=== PATIENT | female | born 1970 | race Caucasian/White ===

== ENCOUNTER 2018-05-22 01:20 | Inpatient (IN) | payer MEDICARE ==
[~2018-05-22] VITALS: Ht 157.5 cm; Wt 81.9 kg
[~2018-05-22 01:20] MED LIST: CLON1TAB4 PO; CODE1CAP9 PO; ESZO2TAB22 PO; GABA-827 PO; HYDR-3237 PO; IBUP-1484 PO; QUET200T4 PO; RIZA5TAB2 PO; ROPI1TAB PO
[2018-05-22 01:57] LABS: MEAN CORPUSCULAR HEMOGLOBIN 22.6 pg (27.0-34.8); MEAN CORPUSCULAR HGB CONC 31.7 g/dL (32.4-35.8); MEAN CORPUSCULAR VOLUME 71.1 fL (80-100); MEAN PLATELET VOLUME 7.6 fL (7.4-10.4); PLATELET COUNT 421 x10^3/uL (130-400); RED BLOOD COUNT 5.07 x10^6/uL (3.82-5.3); RED CELL DISTRIBUTION WIDTH 18.9 % (9.6-15.2)
[2018-05-22 02:10] LABS: ALBUMIN 3.3 g/dL (3.4-5.0); ANION GAP 8 mmol/L (5-15); CALCIUM 8.3 mg/dL (8.5-10.1); CHLORIDE 107 mmol/L (98-107); CREATININE 0.72 mg/dL (0.55-1.02)
[2018-05-22 02:13] LABS: TROPONIN I < 0.015 ng/mL (0.000-0.045)
[2018-05-22 02:33] LABS: BASOPHILS # (AUTO) 0.03 x10^3/uL (0-0.1); BASOPHILS % (AUTO) 0 % (0-1); EOSINOPHILS # (AUTO) 0.15 x10^3/uL (0-0.4); EOSINOPHILS % (AUTO) 1 % (1-7); LYMPHOCYTES # (AUTO) 1.87 x10^3/uL (1-3.4); LYMPHOCYTES % (AUTO) 10 % (22-44); MD SCAN; MONOCYTES # (AUTO) 0.85 x10^3/uL (0.2-0.8); MONOCYTES % (AUTO) 5 % (2-9); NEUTROPHILS % (AUTO) 84 % (42-75)
[2018-05-22] MEDS ORDERED: CEFTRIAXONE PMX 1GM/50ML 50 ML ONE (03:06)
[2018-05-22] MEDS ORDERED: AZITHROMYCIN 500 MG in SODIUM CHLORIDE 0.9% 250 ML IV ONE (03:30)
[2018-05-22] MEDS ORDERED: CEFTRIAXONE 1,000 MG in SODIUM CHLORIDE 0.9% 50 ML IVPB ONE (03:30)
[2018-05-22] MEDS ORDERED: [UNRECOGNIZED DRUG - OTHER] (03:47)
[2018-05-22] MEDS ORDERED: ONDANSETRON 2MG/ML, 2ML ONE (04:17)
[2018-05-22] MEDS ORDERED: SODIUM CHLORIDE 0.9% 1,000 ML IV ONE (04:23)
[2018-05-22] MEDS ORDERED: HEPARIN 5,000 UNITS/ML, 1ML ONE (04:29)
[2018-05-22] MEDS ORDERED: HEPARIN 25,000 UNITS/500ML PMX 500 ML ONE (04:30)
[2018-05-22] MEDS ORDERED: ONDANSETRON 2MG/ML, 2ML IVPush ONE (04:30)
[2018-05-22] MEDS ORDERED: MORPHINE SULFATE 4 MG/ML, 1ML IVPush PRN (04:30)
[2018-05-22] MEDS ORDERED: HEPARIN 5,000 UNITS/ML, 1ML IV PRN (04:30)
[2018-05-22] MEDS ORDERED: HEPARIN 5,000 UNITS/ML, 1ML IV ONE (04:30)
[2018-05-22] MEDS ORDERED: HEPARIN 25,000 UNITS/500ML PMX 500 ML IV PRN (04:30)
[2018-05-22] MEDS ORDERED: SODIUM CHLORIDE 0.9% 1,000 ML IV SCH (04:56)
[2018-05-22] MEDS ORDERED: POLYETHYLENE GLYCOL 17 GM PACKET PO PRN (05:00)
[2018-05-22] MEDS ORDERED: ACETAMINOPHEN 325 MG TABLET PO PRN (05:00)
[2018-05-22] MEDS ORDERED: ONDANSETRON 2MG/ML, 2ML IVPush PRN (05:00)
[2018-05-22] MEDS ORDERED: GUAIFENESIN/DM 200-20MG, 10ML UDC PO PRN (05:00)
[2018-05-22] MEDS ORDERED: morphine SULFATE 10 MG/ML, 1ML IVPush PRN (05:00)
[2018-05-22] MEDS: AZITHROMYCIN 500 MG in SODIUM CHLORIDE 0.9% 250 ML IV SCH (05:00)
[2018-05-22] MEDS ORDERED: hydrALAzine 20 MG/ML, 1ML IVPush PRN (05:00)
[2018-05-22] MEDS ORDERED: TRAZODONE 50MG TABLET PO PRN (05:00)
[2018-05-22] MEDS: CEFTRIAXONE 1,000 MG in SODIUM CHLORIDE 0.9% 50 ML IV SCH (05:00)
[2018-05-22] MEDS ORDERED: ONDANSETRON ODT 4 MG PO PRN (05:00)
[2018-05-22 05:24] VITALS: BP 106/74
[2018-05-22] MEDS: HYDROcodone/APAP 5/325 TABLET PO PRN ×3 (05:38→21:37)
[2018-05-22] MEDS ORDERED: DOCU-180 PO (05:40)
[2018-05-22] MEDS ORDERED: ALBUTEROL SULFATE 2.5 MG/3 ML NPPB PRN (06:00)
[2018-05-22] MEDS: BUTALB/APAP/CAFFEINE 50MG/325MG/40MG PO PRN ×3 (06:04→21:37)
[2018-05-22] MEDS: GABAPENTIN 400 MG CAPSULE PO SCH ×4 (06:04→21:37)
[2018-05-22 07:45] VITALS: BP 91/64
[2018-05-22] MEDS ORDERED: RIVAROXABAN 15 MG TABLET PO SCH (08:00)
[2018-05-22] MEDS: RIVAROXABAN 15 MG TABLET PO SCH ×3 (08:00→17:13)
[2018-05-22] MEDS: QUETIAPINE 200 MG TABLET PO SCH (08:38)
[2018-05-22] MEDS ORDERED: NICOTINE 21 MG/24 HR PATCH.TD24 TD SCH (13:00)
[2018-05-22 13:11] VITALS: BP 92/63
[2018-05-22] MEDS ORDERED: KETOROLAC 30 MG/1 ML ONE (15:51)
[2018-05-22] MEDS ORDERED: KETOROLAC 30 MG/1 ML IVPush SCH (16:00)
[2018-05-22] MEDS ORDERED: KETOROLAC 30 MG/1 ML IVPush ONE (16:00)
[2018-05-22 22:25] VITALS: BP 105/66
[2018-05-23 00:17] VITALS: BP 88/60
[2018-05-23 00:54] VITALS: BP 95/64
[2018-05-23] MEDS ORDERED: SODIUM CHLORIDE 0.9% 1,000 ML IV SCH (04:56)
[2018-05-23] MEDS: GABAPENTIN 400 MG CAPSULE PO SCH ×2 (04:58→12:11)
[2018-05-23] MEDS: CEFTRIAXONE 1,000 MG in SODIUM CHLORIDE 0.9% 50 ML IV SCH (04:59)
[2018-05-23] MEDS: BUTALB/APAP/CAFFEINE 50MG/325MG/40MG PO PRN (04:59)
[2018-05-23] MEDS: AZITHROMYCIN 500 MG in SODIUM CHLORIDE 0.9% 250 ML IV SCH (05:00)
[2018-05-23 05:11] LABS: BASOPHILS # (AUTO) 0.14 x10^3/uL (0-0.1); BASOPHILS % (AUTO) 1 % (0-1); EOSINOPHILS # (AUTO) 0.39 x10^3/uL (0-0.4); EOSINOPHILS % (AUTO) 4 % (1-7); LYMPHOCYTES # (AUTO) 2.39 x10^3/uL (1-3.4); LYMPHOCYTES % (AUTO) 23 % (22-44); MD NO; MEAN CORPUSCULAR HEMOGLOBIN 22.1 pg (27.0-34.8); MEAN CORPUSCULAR HGB CONC 30.9 g/dL (32.4-35.8); MEAN CORPUSCULAR VOLUME 71.3 fL (80-100); MEAN PLATELET VOLUME 7.6 fL (7.4-10.4); MONOCYTES % (AUTO) 6 % (2-9); NEUTROPHILS # (AUTO) 6.76 x10^3/uL (1.8-6.8); NEUTROPHILS % (AUTO) 66 % (42-75); PLATELET COUNT 399 x10^3/uL (130-400); RED BLOOD COUNT 4.29 x10^6/uL (3.82-5.3); RED CELL DISTRIBUTION WIDTH 19.2 % (9.6-15.2)
[2018-05-23 05:16] LABS: ALANINE AMINOTRANSFERASE 13 U/L (12-78); ALBUMIN 2.5 g/dL (3.4-5.0); ANION GAP 3 mmol/L (5-15); CALCIUM 7.2 mg/dL (8.5-10.1); CHLORIDE 116 mmol/L (98-107); CREATININE 0.48 mg/dL (0.55-1.02)
[2018-05-23 05:18] LABS: ALKALINE PHOSPHATASE 64 U/L (45-117); BILIRUBIN,TOTAL 0.3 mg/dL (0.2-1.0)
[2018-05-23] MEDS: HYDROcodone/APAP 5/325 TABLET PO PRN (05:36)
[2018-05-23 06:44] VITALS: BP 88/61
[2018-05-23] MEDS: RIVAROXABAN 15 MG TABLET PO SCH (08:01)
[2018-05-23] MEDS: QUETIAPINE 200 MG TABLET PO SCH (08:01)
[2018-05-23] MEDS ORDERED: RIVA20TA PO (09:33)
[2018-05-23] MEDS ORDERED: DOXY100T PO (09:33)
[2018-05-23] MEDS ORDERED: RIVA1TAB PO (09:33)
== END 2018-05-23 12:27 | disposition home or self-care (01) | DRG 175 ==
LOC: ED 03:27 → EDIP 04:23 → 4WST 05:25
PROVIDERS: ADMIT Hospitalist; ATTEND Hospitalist
DX: I26.99 Other pulmonary embolism without acute cor pulmonale (principal); J18.1 Lobar pneumonia, unspecified organism; D50.9 Iron deficiency anemia, unspecified; F17.210 Nicotine dependence, cigarettes, uncomplicated; R79.1 Abnormal coagulation profile; R07.89 Other chest pain; G43.909 Migraine, unspecified, not intractable, without status migrainosus; G89.29 Other chronic pain; F41.9 Anxiety disorder, unspecified; R79.89 Other specified abnormal findings of blood chemistry; Z98.84 Bariatric surgery status; Z79.899 Other long term (current) drug therapy
CPT/HCPCS: 36415; 71045; 71275; 80048; 80053; 82040; 83735; 84100; 84145; 84484; 85025; 85379; 85520; 87040; 93005; 93306; 93970; 96374; 96375; 99285; J0456; J0696; J1644; J1885; J7030; J7050

== ENCOUNTER 2018-09-27 10:13 | Inpatient (IN) | payer MEDICARE ==
[~2018-09-27] VITALS: Ht 154.9 cm; Wt 71.0 kg
[~2018-09-27 10:13] MED LIST changes: +CLON1TAB11 PO; -CLON1TAB4 PO; +DOCU-180 PO; +DOXY100T PO; +RIVA1TAB PO; +RIVA20TA PO; +[UNRECOGNIZED DRUG - OTHER]
[2018-09-27 11:14] LABS: ALANINE AMINOTRANSFERASE 19 U/L (12-78); ALBUMIN 4.4 g/dL (3.4-5.0); ANION GAP 7 mmol/L (5-15); CALCIUM 8.7 mg/dL (8.5-10.1); CHLORIDE 111 mmol/L (98-107); CREATININE 0.81 mg/dL (0.55-1.02)
[2018-09-27 11:16] LABS: ALKALINE PHOSPHATASE 70 U/L (45-117); BILIRUBIN,TOTAL 0.4 mg/dL (0.2-1.0); TOTAL PROTEIN 8.3 g/dL (6.4-8.2)
[2018-09-27 11:40] LABS: MEAN CORPUSCULAR HEMOGLOBIN 19.8 pg (27.0-34.8); MEAN CORPUSCULAR HGB CONC 30.2 g/dL (32.4-35.8); MEAN CORPUSCULAR VOLUME 65.5 fL (80-100); MEAN PLATELET VOLUME 8.3 fL (7.4-10.4); PLATELET COUNT 605 x10^3/uL (130-400); RED BLOOD COUNT 4.99 x10^6/uL (3.82-5.3)
[2018-09-27 11:42] LABS: BASOPHILS # (AUTO) 0.08 x10^3/uL (0-0.1); BASOPHILS % (AUTO) 1 % (0-1); EOSINOPHILS # (AUTO) 0.34 x10^3/uL (0-0.4); EOSINOPHILS % (AUTO) 3 % (1-7); LYMPHOCYTES # (AUTO) 2.52 x10^3/uL (1-3.4); LYMPHOCYTES % (AUTO) 20 % (22-44); MD MORPH REVIEW ONLY; MONOCYTES # (AUTO) 0.42 x10^3/uL (0.2-0.8); MONOCYTES % (AUTO) 3 % (2-9); NEUTROPHILS # (AUTO) 8.98 x10^3/uL (1.8-6.8); NEUTROPHILS % (AUTO) 73 % (42-75)
[2018-09-27 11:44] LABS: INTERNATIONAL NORMALIZED RATIO 0.94 (0.93-1.1)
[2018-09-27] MEDS ORDERED: LIDOCAINE/PF 1%, 30ML ONE (11:44)
[2018-09-27 11:45] LABS: <PLATELET ESTIMATE> INCREASED; <PLT MORPHOLOGY> NORMAL PLT MORPH; ANISOCYTOSIS 1+; MICROCYTOSIS 2+
[2018-09-27 11:46] LABS: HYPOCHROMIA 2+
[2018-09-27] MEDS ORDERED: SODIUM CHLORIDE 0.9% 1,000 ML IV SCH (12:35)
[2018-09-27] MEDS ORDERED: HYDROcodone/APAP 5/325 TABLET PO PRN (13:00)
[2018-09-27] MEDS ORDERED: ONDANSETRON ODT 4 MG PO PRN (13:00)
[2018-09-27] MEDS ORDERED: GABAPENTIN 300 MG CAPSULE PO PRN (13:00)
[2018-09-27] MEDS ORDERED: hydrALAzine 20 MG/ML, 1ML IVPush PRN (13:00)
[2018-09-27] MEDS ORDERED: DOCUSATE 100 MG CAPSULE PO PRN (13:00)
[2018-09-27] MEDS ORDERED: ONDANSETRON 2MG/ML, 2ML IVPush PRN (13:00)
[2018-09-27] MEDS ORDERED: morphine SULFATE 10 MG/ML, 1ML IVPush PRN (13:00)
[2018-09-27] MEDS ORDERED: LABETALOL 5MG/ML, 20ML IVPush PRN (13:00)
[2018-09-27] MEDS ORDERED: PROMETHAZINE 25 MG/ML, 1ML IM PRN (13:00)
[2018-09-27] MEDS ORDERED: POLYETHYLENE GLYCOL 17 GM PACKET PO PRN (13:00)
[2018-09-27] MEDS ORDERED: BISACODYL 10 MG SUPP PR PRN (13:00)
[2018-09-27] MEDS ORDERED: ACETAMINOPHEN 325 MG TABLET PO PRN (13:00)
[2018-09-27 13:37] LABS: FREE T4 (FREE THYROXINE) 0.74 ng/dL (0.76-1.46); THYROID STIMULATING HORMONE 3.24 mIU/L (0.358-3.740)
[2018-09-27 14:00] VITALS: BP 124/81
[2018-09-27] MEDS: QUETIAPINE 200 MG TABLET PO SCH (14:03)
[2018-09-27] MEDS: GABAPENTIN 400 MG CAPSULE PO SCH ×3 (14:04→20:05)
[2018-09-27] MEDS: NICOTINE 14MG/24 HR PATCH.TD24 TD SCH (14:22)
[2018-09-27] MEDS: BUTALBIT/ACETAMIN/CAFF/CODEINE CAPSULE PO PRN (14:23)
[2018-09-27] MEDS ORDERED: ALBUTEROL SULFATE 2.5 MG/3 ML NPPB PRN (16:30)
[2018-09-27] MEDS ORDERED: METH750T87 PO ×2 (18:30→18:34)
[2018-09-27] MEDS ORDERED: PRAM0.37 PO (18:30)
[2018-09-27] MEDS ORDERED: QUET300T5 PO (18:34)
[2018-09-27 20:01] VITALS: BP 94/63
[2018-09-27] MEDS: OXYcodone IR 5MG TABLET PO PRN (20:05)
[2018-09-27] MEDS ORDERED: PRAMIPEXOLE DI HCL 0.375 MG HOMEMEDPO SCH (22:00)
[2018-09-27] MEDS ORDERED: METHOCARBAMOL 750 MG TABLET PO PRN (22:00)
[2018-09-27] MEDS ORDERED: QUETIAPINE 100MG TABLET PO SCH (22:00)
[2018-09-28 01:15] VITALS: BP 90/60
[2018-09-28] MEDS: OXYcodone IR 5MG TABLET PO PRN ×3 (03:29→12:35)
[2018-09-28] MEDS: GABAPENTIN 400 MG CAPSULE PO SCH ×3 (05:10→16:00)
[2018-09-28 06:20] LABS: ALANINE AMINOTRANSFERASE 13 U/L (12-78); ALBUMIN 3.1 g/dL (3.4-5.0); ANION GAP 8 mmol/L (5-15); CALCIUM 7.6 mg/dL (8.5-10.1); CHLORIDE 111 mmol/L (98-107); CREATININE 0.73 mg/dL (0.55-1.02); MEAN CORPUSCULAR HEMOGLOBIN 19.5 pg (27.0-34.8); MEAN CORPUSCULAR VOLUME 66.2 fL (80-100); MEAN PLATELET VOLUME 8.1 fL (7.4-10.4); PLATELET COUNT 496 x10^3/uL (130-400); RED BLOOD COUNT 4.09 x10^6/uL (3.82-5.3); RED CELL DISTRIBUTION WIDTH 19.7 % (9.6-15.2)
[2018-09-28 06:23] LABS: ALKALINE PHOSPHATASE 51 U/L (45-117); BILIRUBIN,TOTAL 0.2 mg/dL (0.2-1.0)
[2018-09-28 06:27] LABS: MEAN CORPUSCULAR HGB CONC 29.5 g/dL (32.4-35.8)
[2018-09-28 06:43] VITALS: BP 95/64
[2018-09-28 06:43] LABS: BASOPHILS # (AUTO) 0.05 x10^3/uL (0-0.1); BASOPHILS % (AUTO) 1 % (0-1); EOSINOPHILS # (AUTO) 0.46 x10^3/uL (0-0.4); EOSINOPHILS % (AUTO) 5 % (1-7); LYMPHOCYTES # (AUTO) 2.93 x10^3/uL (1-3.4); LYMPHOCYTES % (AUTO) 32 % (22-44); MD SCAN; MONOCYTES # (AUTO) 0.54 x10^3/uL (0.2-0.8); MONOCYTES % (AUTO) 6 % (2-9); NEUTROPHILS # (AUTO) 5.34 x10^3/uL (1.8-6.8); NEUTROPHILS % (AUTO) 57 % (42-75)
[2018-09-28] MEDS: QUETIAPINE 200 MG TABLET PO SCH (08:58)
[2018-09-28] MEDS ORDERED: RIVAROXABAN 20 MG TABLET PO SCH (09:00)
[2018-09-28] MEDS ORDERED: ALBU18HF INH (12:06)
[2018-09-28] MEDS: BUTALBIT/ACETAMIN/CAFF/CODEINE CAPSULE PO PRN (12:24)
[2018-09-28] MEDS: NICOTINE 14MG/24 HR PATCH.TD24 TD SCH (12:24)
[2018-09-28 12:50] VITALS: BP 93/65
== END 2018-09-28 17:22 | disposition home or self-care (01) | DRG 200 ==
LOC: ED 12:47 → EDIP 12:48 → 3NE 13:37
PROVIDERS: ADMIT Internal Medicine; ATTEND Internal Medicine
PROC: 0W9B30Z Drainage of Left Pleural Cavity with Drainage Device, Percutaneous Approach (ICD-10-PCS; principal; 2018-09-27)
DX: J93.83 Other pneumothorax (principal); K50.90 Crohn's disease, unspecified, without complications; D68.69 Other thrombophilia; Z79.01 Long term (current) use of anticoagulants; Z86.711 Personal history of pulmonary embolism; F17.210 Nicotine dependence, cigarettes, uncomplicated; D53.9 Nutritional anemia, unspecified; F41.9 Anxiety disorder, unspecified; F51.04 Psychophysiologic insomnia; G89.4 Chronic pain syndrome; Z98.84 Bariatric surgery status; Z79.899 Other long term (current) drug therapy; Z88.0 Allergy status to penicillin; Z88.8 Allergy status to other drugs, medicaments and biological substances
CPT/HCPCS: 32557; 36415; 71045; 80053; 83036; 83690; 83735; 84439; 84443; 85025; 85610; 85730; 93005; 93306; 99285; G0378; J3490; C1729; C1769; J2270; J7030

== ENCOUNTER 2018-11-16 15:04 | Emergency (ER) | payer MEDICARE ==
[~2018-11-16] VITALS: Ht 157.5 cm; Wt 66.6 kg
[~2018-11-16 15:04] MED LIST changes: +ALBU18HF INH; +METH750T87 PO; +PRAM0.37 PO; +QUET300T5 PO
[2018-11-16 15:09] VITALS: BP 123/85
[2018-11-16] MEDS ORDERED: LIDOCAINE-MPF 1%, 5ML ONE (15:27)
[2018-11-16] MEDS ORDERED: CEFAZOLIN 1,000 MG IM ONE (15:30)
[2018-11-16] MEDS ORDERED: HYDROcodone/APAP 5/325 TABLET PO ONE (15:30)
[2018-11-16] MEDS ORDERED: LIDOCAINE 2%, 20ML SQ ONE (15:30)
[2018-11-16] MEDS ORDERED: CEFAZOLIN 1,000 MG ONE (15:36)
[2018-11-16] MEDS ORDERED: HYDROcodone/APAP 5/325 TABLET ONE (15:36)
[2018-11-16] MEDS ORDERED: BACITRACIN ZINC OINT 500U/GM, 0.9 GM ONE ×2 (16:27→16:51)
--- NOTE | 2018-11-16 16:49 | NUR ---
SHERLY BARNES AT BEDSIDE PERFORMING SUTURES.
== END 2018-11-16 17:34 | disposition home or self-care (01) ==
LOC: ED 15:47
DX: S62.661B Nondisplaced fracture of distal phalanx of left index finger, initial encounter for open fracture (principal); F17.200 Nicotine dependence, unspecified, uncomplicated; W31.2XXA Contact with powered woodworking and forming machines, initial encounter; Y93.89 Activity, other specified; Y92.009 Unspecified place in unspecified non-institutional (private) residence as the place of occurrence of the external cause; Y99.8 Other external cause status
CPT/HCPCS: 29130; 73130; 99284; J0690

== ENCOUNTER → 2018-12-17 | Outpatient (CLI) | payer MEDICARE | END | disposition home or self-care (01) | LOC: WOUND 14:01 | PROVIDERS: ATTEND Family Medicine | DX: T81.31XA Disruption of external operation (surgical) wound, not elsewhere classified, initial encounter (principal); K58.2 Mixed irritable bowel syndrome; J45.20 Mild intermittent asthma, uncomplicated; F17.200 Nicotine dependence, unspecified, uncomplicated; G43.709 Chronic migraine without aura, not intractable, without status migrainosus; Z86.711 Personal history of pulmonary embolism; Y92.89 Other specified places as the place of occurrence of the external cause; Y83.8 Other surgical procedures as the cause of abnormal reaction of the patient, or of later complication, without mention of misadventure at the time of the procedure | CPT/HCPCS: 97597; G0463 ==

== ENCOUNTER → 2018-12-24 | Outpatient (CLI) | payer MEDICARE | END | disposition home or self-care (01) | LOC: WOUND 14:38 | PROVIDERS: ATTEND Family Medicine | DX: T81.31XD Disruption of external operation (surgical) wound, not elsewhere classified, subsequent encounter (principal); J45.20 Mild intermittent asthma, uncomplicated; K58.2 Mixed irritable bowel syndrome; G43.709 Chronic migraine without aura, not intractable, without status migrainosus; F17.200 Nicotine dependence, unspecified, uncomplicated; Z86.711 Personal history of pulmonary embolism; Y83.8 Other surgical procedures as the cause of abnormal reaction of the patient, or of later complication, without mention of misadventure at the time of the procedure | CPT/HCPCS: 97597 ==

== ENCOUNTER → 2018-12-31 | Outpatient (CLI) | payer MEDICARE | END | disposition home or self-care (01) | LOC: WOUND 14:44 | PROVIDERS: ATTEND Family Medicine | DX: T81.31XD Disruption of external operation (surgical) wound, not elsewhere classified, subsequent encounter (principal); J45.20 Mild intermittent asthma, uncomplicated; K58.2 Mixed irritable bowel syndrome; G43.909 Migraine, unspecified, not intractable, without status migrainosus; F17.200 Nicotine dependence, unspecified, uncomplicated; Z86.711 Personal history of pulmonary embolism; Y83.8 Other surgical procedures as the cause of abnormal reaction of the patient, or of later complication, without mention of misadventure at the time of the procedure | CPT/HCPCS: 97597 ==

== ENCOUNTER → 2019-01-07 | Outpatient (CLI) | payer MEDICARE | END | disposition home or self-care (01) | LOC: WOUND 14:20 | PROVIDERS: ATTEND Family Medicine | DX: T81.31XD Disruption of external operation (surgical) wound, not elsewhere classified, subsequent encounter (principal); J45.20 Mild intermittent asthma, uncomplicated; K58.2 Mixed irritable bowel syndrome; G43.709 Chronic migraine without aura, not intractable, without status migrainosus; F17.200 Nicotine dependence, unspecified, uncomplicated; Z86.711 Personal history of pulmonary embolism; Y83.8 Other surgical procedures as the cause of abnormal reaction of the patient, or of later complication, without mention of misadventure at the time of the procedure | CPT/HCPCS: 97597 ==

== ENCOUNTER → 2019-01-21 | Outpatient (CLI) | payer MEDICARE | END | disposition home or self-care (01) | LOC: WOUND 10:37 | PROVIDERS: ATTEND Family Medicine | DX: T81.31XD Disruption of external operation (surgical) wound, not elsewhere classified, subsequent encounter (principal); J45.20 Mild intermittent asthma, uncomplicated; K58.2 Mixed irritable bowel syndrome; G43.709 Chronic migraine without aura, not intractable, without status migrainosus; F17.200 Nicotine dependence, unspecified, uncomplicated; Z86.711 Personal history of pulmonary embolism; Y83.8 Other surgical procedures as the cause of abnormal reaction of the patient, or of later complication, without mention of misadventure at the time of the procedure | CPT/HCPCS: G0463 ==

== ENCOUNTER 2019-06-16 19:13 | Inpatient (IN) | payer MEDICARE ==
[~2019-06-16] VITALS: Ht 157.5 cm; Wt 53.8 kg
[~2019-06-16 19:13] MED LIST changes: -IBUP-1484 PO; +IBUP-1902 PO
--- NOTE | 2019-06-16 19:40 | NUR ---
PT HERE TODAY FOR ABD PAIN AND DIARRHEA THAT STARTED EARLIER THIS WEEK. HAD INCONTINENT EPISODE OF DIARRHEA ONCE LAST NIGHT. PT RESTING ON GURNEY. STATES SHE HAS BEEN VERY TIRED. VSS. LAB AT BEDSIDE. MD WAS AT BEDSIDE TO ASSESS PT AND UPDATE PT ON POC.
--- NOTE | 2019-06-16 19:48 | NUR ---
LAB FINISHED AT BEDSIDE. PT REQUESTING TO HAVE TIME TO PROVIDE UA SHE JUST WENT. AWARE OF POC. WILL ATTEMPT TO START PIV.
[2019-06-16] MEDS ORDERED: ACETAMINOPHEN 500 MG TABLET ONE (19:52)
--- NOTE | 2019-06-16 19:54 | NUR ---
PT MEDICATED PER EMAR. STARTING PIV WHEN PT RETURNS FROM BATHROOM- STATES SHE NEEDS TO HAVE DIARRHEA. GIVEN URINE CUP TO ATTEMPT TO CATCH UA.
[2019-06-16] MEDS ORDERED: ACETAMINOPHEN 500 MG TABLET PO ONE (20:00)
[2019-06-16] MEDS ORDERED: SODIUM CHLORIDE FLUSH 10ML SYR IVF ONE (20:00)
[2019-06-16 20:06] LABS: ALANINE AMINOTRANSFERASE 14 U/L (12-78); ALBUMIN 2.6 g/dL (3.4-5.0); ANION GAP 9 mmol/L (5-15); CALCIUM 7.6 mg/dL (8.5-10.1); CHLORIDE 114 mmol/L (98-107); CREATININE 0.69 mg/dL (0.55-1.02)
[2019-06-16 20:08] LABS: ALKALINE PHOSPHATASE 79 U/L (45-117); BILIRUBIN,TOTAL 0.1 mg/dL (0.2-1.0); TOTAL PROTEIN 5.9 g/dL (6.4-8.2)
--- NOTE | 2019-06-16 20:09 | NUR ---
PIV STARTED. PT HYPOTENSIVE. WILL ALERT MD. PT RESTING ON ROBERTO. TAMAR.
--- NOTE | 2019-06-16 20:12 | NUR ---
PT STATES SHE WAS UNABLE TO PROVIDE URINE AND DID NOT HAVE DIARREA. PT STATES "YOU WILL NOT STRAIGHT CATH ME. IF I AM TO PROVIDE URINE I NEED TO DRINK WATER." WILL INFORM .
--- NOTE | 2019-06-16 20:22 | NUR ---
PT STATES SHE HAD A BM IN PT BATHROOM NOW THAT WAS SORT OF SOLID. PT PLACED ON ISO PRECAUTIONS FOR R/O C-DIFF AND BSC PLACED AT BEDSIDE TO COLLECT NEXT BM. PT NOW RESTING ON GURNEY. VSS. NADN. CONNECTED TO MONITOR.
[2019-06-16] MEDS ORDERED: SODIUM CHLORIDE 0.9% 1,000ML IVBOLUS ONE (20:30)
[2019-06-16 20:37] LABS: MEAN CORPUSCULAR HEMOGLOBIN 19.1 pg (27.0-34.8); MEAN CORPUSCULAR VOLUME 64.2 fL (80-100); MEAN PLATELET VOLUME 7.3 fL (7.4-10.4); PLATELET COUNT 414 x10^3/uL (130-400); RED CELL DISTRIBUTION WIDTH 19.4 % (9.6-15.2)
--- NOTE | 2019-06-16 20:45 | NUR ---
PT BACK FROM CT NOW. RESTING ON [place]. VSS. BOYLE.
[2019-06-16] MEDS ORDERED: OMNIPAQUE 350 MG/ML, 100ML BOTTLE ONE (20:46)
--- NOTE | 2019-06-16 20:52 | NUR ---
REPORT GIVEN TO YUMIKO ROGERS
[2019-06-16 21:06] LABS: MEAN CORPUSCULAR HGB CONC 29.8 g/dL (32.4-35.8)
[2019-06-16 21:09] LABS: BASOPHILS # (AUTO) 0.03 x10^3/uL (0-0.1); BASOPHILS % (AUTO) 1 % (0-1); EOSINOPHILS % (AUTO) 3 % (1-7); LYMPHOCYTES # (AUTO) 1.91 x10^3/uL (1-3.4); LYMPHOCYTES % (AUTO) 26 % (22-44); MD MORPH REVIEW ONLY; MONOCYTES # (AUTO) 0.52 x10^3/uL (0.2-0.8); MONOCYTES % (AUTO) 7 % (2-9); NEUTROPHILS # (AUTO) 4.68 x10^3/uL (1.8-6.8); NEUTROPHILS % (AUTO) 64 % (42-75)
[2019-06-16 21:21] LABS: HYPOCHROMIA 2+; MICROCYTOSIS 2+; OVALOCYTES 1+; POLYCHROMASIA 1+
[2019-06-16 21:25] LABS: <PLATELET ESTIMATE> INCREASED; SCHISTOCYTES 1+
[2019-06-16 21:26] LABS: LARGE PLATELETS 1+
[2019-06-16] MEDS ORDERED: POTASSIUM CHLORIDE 40 MEQ in SODIUM CHLORIDE 0.9% 500 ML IV ONE (21:30)
--- NOTE | 2019-06-16 21:38 | NUR ---
PT SITTING UP ON GURNEY, MONITORS IN PLACE, SIDERAILS UP X2, CALL LIGHT WITHIN REACH. STOOL SAMPLE COLLECTED AND TAKEN TO LAB
[2019-06-16] MEDS ORDERED: NS + 40MEQ KCL 1,000 ML IV ONE (21:46)
[2019-06-16] MEDS ORDERED: NS + 20MEQ KCL 1,000 ML IV SCH (21:51)
[2019-06-16] MEDS ORDERED: BUTALBITAL HOMEMEDPO PRN (22:00)
[2019-06-16] MEDS ORDERED: CAFFEIN HOMEMEDPO PRN (22:00)
[2019-06-16] MEDS ORDERED: morphine SULFATE 10 MG/ML, 1ML IVPush PRN (22:00)
[2019-06-16] MEDS ORDERED: [UNRECOGNIZED DRUG - OTHER] HOMEMEDPO PRN (22:00)
[2019-06-16] MEDS ORDERED: CODEINE HOMEMEDPO PRN (22:00)
[2019-06-16] MEDS ORDERED: ASA HOMEMEDPO PRN (22:00)
[2019-06-16] MEDS ORDERED: METHOCARBAMOL 750 MG TABLET PO PRN (22:00)
[2019-06-16] MEDS ORDERED: hydrALAzine 20 MG/ML, 1ML IVPush PRN (22:00)
[2019-06-16 22:21] LABS: % IRON SATURATION 3 % (20-55); IRON LEVEL 9 mcg/dL (50-170); TOTAL IRON BINDING CAPACITY 353 mcg/dL (250-450)
--- NOTE | 2019-06-16 22:29 | NUR ---
URINE SAMPLE SENT
[2019-06-16] MEDS ORDERED: POTASSIUM CHLORIDE 20 MEQ TAB.ER.PRT PO ONE (22:30)
[2019-06-16 22:38] LABS: MICROSCOPIC NOT IND
[2019-06-16 22:40] LABS: CULTURE INDICATED? NO
[2019-06-16 22:55] VITALS: BP 109/60
[2019-06-16 23:04] LABS: CLOSTRIDIUM DIFFICILE ANTIGEN NEGATIVE; CLOSTRIDIUM DIFFICILE TOXIN NEGATIVE (Negative)
[2019-06-17 00:38] VITALS: BP 108/61
[2019-06-17] MEDS: GABAPENTIN 400 MG CAPSULE PO SCH ×3 (02:12→12:17)
[2019-06-17] MEDS: HYDROcodone/APAP 5/325 TABLET PO PRN ×2 (02:12→11:02)
[2019-06-17] MEDS ORDERED: QUETIAPINE 100MG TABLET PO SCH ×2 (02:30→21:00)
[2019-06-17] MEDS ORDERED: BUTALB/APAP/CAFFEINE 50MG/325MG/40MG PO PRN (04:00)
[2019-06-17 04:50] LABS: ALBUMIN 2.3 g/dL (3.4-5.0); ANION GAP 5 mmol/L (5-15); CALCIUM 7.5 mg/dL (8.5-10.1); CHLORIDE 116 mmol/L (98-107)
[2019-06-17 04:53] LABS: ALANINE AMINOTRANSFERASE 14 U/L (12-78); ALKALINE PHOSPHATASE 73 U/L (45-117); BILIRUBIN,TOTAL 0.2 mg/dL (0.2-1.0); CREATININE 0.49 mg/dL (0.55-1.02); TOTAL PROTEIN 5.2 g/dL (6.4-8.2)
[2019-06-17 05:36] LABS: MEAN CORPUSCULAR HEMOGLOBIN 18.7 pg (27.0-34.8); MEAN CORPUSCULAR VOLUME 63.8 fL (80-100); MEAN PLATELET VOLUME 7.1 fL (7.4-10.4); PLATELET COUNT 448 x10^3/uL (130-400); RED BLOOD COUNT 3.83 x10^6/uL (3.82-5.3); RED CELL DISTRIBUTION WIDTH 19.8 % (9.6-15.2)
[2019-06-17 05:44] LABS: MEAN CORPUSCULAR HGB CONC 29.3 g/dL (32.4-35.8)
[2019-06-17] MEDS ORDERED: ALBUTEROL SULFATE 2.5 MG/3 ML NPPB SCH (06:00)
[2019-06-17] MEDS ORDERED: GABAPENTIN 400 MG CAPSULE PO SCH (06:00)
[2019-06-17 06:04] LABS: BASOPHILS # (AUTO) 0.02 x10^3/uL (0-0.1); BASOPHILS % (AUTO) 0 % (0-1); EOSINOPHILS # (AUTO) 0.12 x10^3/uL (0-0.4); EOSINOPHILS % (AUTO) 2 % (1-7); LYMPHOCYTES # (AUTO) 1.97 x10^3/uL (1-3.4); LYMPHOCYTES % (AUTO) 28 % (22-44); MD SCAN; MONOCYTES # (AUTO) 0.68 x10^3/uL (0.2-0.8); MONOCYTES % (AUTO) 10 % (2-9); NEUTROPHILS # (AUTO) 4.24 x10^3/uL (1.8-6.8); NEUTROPHILS % (AUTO) 60 % (42-75)
[2019-06-17 08:30] VITALS: BP 100/65
[2019-06-17 09:37] VITALS: BP 91/57
[2019-06-17 10:57] VITALS: BP 101/70
[2019-06-17] MEDS ORDERED: ZOLPIDEM 5MG TABLET PO ONE (21:00)
[2019-06-17] MEDS ORDERED: PRAMIPEXOLE DI HCL 4.5 MG HOMEMEDPO SCH (21:00)
== END 2019-06-17 14:35 | disposition home or self-care (01) | DRG 641 ==
LOC: ED 20:50 → EDIP 21:51 → 3N 22:30 → DCLOUNGE 06-17 14:27
PROVIDERS: ADMIT Family Medicine; ATTEND Family Medicine
DX: E86.0 Dehydration (principal); K52.9 Noninfective gastroenteritis and colitis, unspecified; D50.9 Iron deficiency anemia, unspecified; E87.6 Hypokalemia; F17.200 Nicotine dependence, unspecified, uncomplicated; F41.9 Anxiety disorder, unspecified; Z86.711 Personal history of pulmonary embolism; Z98.84 Bariatric surgery status
CPT/HCPCS: 36415; 74177; 80053; 81003; 83540; 83550; 83605; 83690; 83735; 84100; 85025; 87324; 99285; G0378; J3480; Q9967; J7030; J7040

== ENCOUNTER 2020-01-20 16:51 | Inpatient (IN) | payer MEDICARE ==
[~2020-01-20] VITALS: Ht 157.5 cm; Wt 67.3 kg
--- NOTE | 2020-01-20 17:18 | NUR ---
months of GI problems, n/v/constipation, cramping. "feels like I cant take a deep breath"
[2020-01-20] MEDS ORDERED: MAALOX/HYOSCYAMINE/LIDOCAINE 45 ML BTL PO ONE (17:30)
[2020-01-20] MEDS ORDERED: SODIUM CHLORIDE FLUSH 10ML SYR IVF ONE (17:30)
[2020-01-20] MEDS ORDERED: DIAZEPAM 5 MG TABLET PO ONE (17:30)
[2020-01-20] MEDS ORDERED: DIAZEPAM 5 MG TABLET ONE (17:38)
[2020-01-20] MEDS ORDERED: MAALOX/HYOSCYAMINE/LIDOCAINE 45 ML BTL ONE (17:40)
[2020-01-20 18:09] LABS: BASOPHILS # (AUTO) 0.07 x10^3/uL (0-0.1); BASOPHILS % (AUTO) 1 % (0-1); EOSINOPHILS # (AUTO) 0.31 x10^3/uL (0-0.4); EOSINOPHILS % (AUTO) 4 % (1-7); LYMPHOCYTES # (AUTO) 2.43 x10^3/uL (1-3.4); LYMPHOCYTES % (AUTO) 30 % (22-44); MD NO; MEAN CORPUSCULAR HEMOGLOBIN 19.8 pg (27.0-34.8); MEAN CORPUSCULAR HGB CONC 30.3 g/dL (32.4-35.8); MEAN CORPUSCULAR VOLUME 65.5 fL (80-100); MEAN PLATELET VOLUME 7.7 fL (7.4-10.4); MONOCYTES # (AUTO) 0.64 x10^3/uL (0.2-0.8); MONOCYTES % (AUTO) 8 % (2-9); NEUTROPHILS # (AUTO) 4.78 x10^3/uL (1.8-6.8); NEUTROPHILS % (AUTO) 58 % (42-75); PLATELET COUNT 500 x10^3/uL (130-400); RED BLOOD COUNT 4.48 x10^6/uL (3.82-5.3); RED CELL DISTRIBUTION WIDTH 18.8 % (9.6-15.2)
[2020-01-20 18:19] LABS: ALBUMIN 3.5 g/dL (3.4-5.0); ANION GAP 6 mmol/L (5-15); CALCIUM 8.5 mg/dL (8.5-10.1); CHLORIDE 106 mmol/L (98-107)
[2020-01-20 18:25] LABS: ALANINE AMINOTRANSFERASE 21 U/L (12-78); ALKALINE PHOSPHATASE 103 U/L (45-117); BILIRUBIN,TOTAL 0.2 mg/dL (0.2-1.0); CREATININE 0.65 mg/dL (0.55-1.02); TOTAL PROTEIN 7.7 g/dL (6.4-8.2)
--- NOTE | 2020-01-20 18:26 | NUR ---
PT RESTING IN BED. CALL LIGHT IN REACH.
--- NOTE | 2020-01-20 19:20 | NUR ---
REPORT FROM SANGEETA CALDERON
--- NOTE | 2020-01-20 20:01 | NUR ---
PT APPEARS TO BE UNRESPONSIVE WHEN INFORMED OF PENDING DISCHARGE. HOWEVER PT MAINTAINS AIRWAY AND MUSCLE TENSION/ STRENGTH. PT REPOSITIONED CALL LIGHT IN REACH.
--- NOTE | 2020-01-20 20:02 | NUR ---
PA UPDATED ON PT CONDITION
--- NOTE | 2020-01-20 20:05 | NUR ---
MD AT BEDSIDE TO ASSESS PT AND DISCUSS POC
--- NOTE | 2020-01-20 20:35 | NUR ---
PT PHONE WAS ON COUNTER, PT GOT OUT OF BED AND HAS RETREIVED HER PHONE AND HAS BEEN CALLING HER . UPDATED ON POC, SPOKE WITH SADIA BARRETO. PT UP TO BSC AND BACK TO BED
--- NOTE | 2020-01-20 21:30 | NUR ---
PT ALERT AND ORIENTED, PIV STARTED FOR IMAGING AT THIS TIME. Addendum: 01/20/20 at 2140 by [email or web address] PT NOW TEARFUL STS SHE DOESN'T KNOW WHAT IS WRONG WITH HER AND SHE WISHES SHE NEVER HAD HER BYPASS SURGERY.
[2020-01-20] MEDS ORDERED: OMNIPAQUE 350 MG/ML, 100ML BOTTLE ONE (21:51)
--- NOTE | 2020-01-20 21:56 | NUR ---
PT BACK FROM CT
[2020-01-20] MEDS ORDERED: BUTALB/APAP/CAFFEINE 50MG/325MG/40MG PO ONE (22:30)
[2020-01-20] MEDS ORDERED: FIORICET PO (22:45)
--- NOTE | 2020-01-20 22:45 | NUR ---
PT PROVIDED WITH APPLESAUCE AND WATER REQUESTED. MED REQ FROM PHARMACY
--- NOTE | 2020-01-20 23:05 | NUR ---
HOSPTIALIST PALAK AT BEDSIDE, TO ADMIT PT. REPORT TO CASSIA CALDERON ALL QUESTIONS ADDRESSED, PT READY FOR TRANSFER TO FLOOR.
[2020-01-20 23:47] VITALS: BP 152/94
[2020-01-20 23:56] LABS: MICROSCOPIC NOT IND
[2020-01-20 23:58] LABS: CULTURE INDICATED? NO
[2020-01-21] MEDS ORDERED: DOCUSATE 100 MG CAPSULE PO PRN
[2020-01-21] MEDS ORDERED: BISACODYL 10 MG SUPP PR PRN
[2020-01-21] MEDS ORDERED: ONDANSETRON 2MG/ML, 2ML IVPush PRN
[2020-01-21] MEDS ORDERED: PROMETHAZINE 25 MG/ML, 1ML IM PRN
[2020-01-21] MEDS ORDERED: POLYETHYLENE GLYCOL 17 GM PACKET PO PRN
[2020-01-21 00:07] LABS: TROPONIN I < 0.015 ng/mL (0.000-0.045)
[2020-01-21] MEDS: HYDROcodone/APAP 5/325 TABLET PO PRN ×2 (00:13→07:44)
[2020-01-21] MEDS: ENOXAPARIN 40 MG/0.4 ML SQ SCH ×2 (00:13→20:01)
[2020-01-21] MEDS ORDERED: SODIUM CHLORIDE 0.9% 1,000 ML IV SCH (00:30)
[2020-01-21 01:21] VITALS: BP 102/67
[2020-01-21] MEDS: ACETAMINOPHEN 325 MG TABLET PO PRN ×2 (02:06→14:56)
[2020-01-21 05:04] LABS: MD YES
[2020-01-21 05:08] LABS: ANION GAP 5 mmol/L (5-15); CALCIUM 8.2 mg/dL (8.5-10.1); CHLORIDE 110 mmol/L (98-107)
[2020-01-21 05:14] LABS: ALANINE AMINOTRANSFERASE 16 U/L (12-78); ALKALINE PHOSPHATASE 91 U/L (45-117); BILIRUBIN,TOTAL 0.2 mg/dL (0.2-1.0); CREATININE 0.58 mg/dL (0.55-1.02); TOTAL PROTEIN 6.8 g/dL (6.4-8.2); TROPONIN I < 0.015 ng/mL (0.000-0.045)
[2020-01-21 05:16] LABS: MEAN CORPUSCULAR HEMOGLOBIN 19.8 pg (27.0-34.8); MEAN PLATELET VOLUME 7.7 fL (7.4-10.4); PLATELET COUNT 474 x10^3/uL (130-400); RED BLOOD COUNT 4.35 x10^6/uL (3.82-5.3); RED CELL DISTRIBUTION WIDTH 18.6 % (9.6-15.2)
[2020-01-21] MEDS: GABAPENTIN 400 MG CAPSULE PO SCH ×4 (05:18→19:59)
[2020-01-21 05:26] LABS: MEAN CORPUSCULAR HGB CONC 29.9 g/dL (32.4-35.8)
[2020-01-21 05:52] LABS: ANISOCYTOSIS 1+; EOS% (MANUAL) 3 % (1-7); HYPOCHROMIA 2+; LYMPH#(MANUAL) 2.86 x10^3/uL (1-3.4); LYMPHS% (MANUAL) 42 % (22-44); MICROCYTOSIS 1+; MONOS#(MANUAL) 0.14 x10^3/uL (0.3-2.7); MONOS% (MANUAL) 2 % (2-9); SEGS% (MANUAL) 53 % (42-75)
[2020-01-21 05:53] LABS: <PLATELET ESTIMATE> INCREASED; <PLT MORPHOLOGY> NORMAL PLT MORPH; OVALOCYTES 1+
[2020-01-21 06:54] VITALS: BP 101/65
[2020-01-21] MEDS: BUTALB/APAP/CAFFEINE 50MG/325MG/40MG PO PRN ×4 (07:46→22:09)
[2020-01-21 12:16] VITALS: BP 131/78
[2020-01-21 20:16] VITALS: BP 128/85
[2020-01-22 01:10] VITALS: BP 103/71
[2020-01-22] MEDS: BUTALB/APAP/CAFFEINE 50MG/325MG/40MG PO PRN ×4 (03:35→19:15)
[2020-01-22 05:45] LABS: ANION GAP 6 mmol/L (5-15); CALCIUM 8.3 mg/dL (8.5-10.1); CHLORIDE 110 mmol/L (98-107)
[2020-01-22 05:46] LABS: CREATININE 0.59 mg/dL (0.55-1.02)
[2020-01-22 05:48] LABS: MEAN CORPUSCULAR HEMOGLOBIN 20.1 pg (27.0-34.8); MEAN CORPUSCULAR HGB CONC 30.2 g/dL (32.4-35.8); MEAN CORPUSCULAR VOLUME 66.7 fL (80-100); MEAN PLATELET VOLUME 7.2 fL (7.4-10.4); PLATELET COUNT 372 x10^3/uL (130-400); RED BLOOD COUNT 4.22 x10^6/uL (3.82-5.3); RED CELL DISTRIBUTION WIDTH 18.8 % (9.6-15.2)
[2020-01-22] MEDS: GABAPENTIN 400 MG CAPSULE PO SCH ×4 (06:00→20:00)
[2020-01-22 06:30] LABS: MD YES
[2020-01-22 06:35] LABS: EOS% (MANUAL) 6 % (1-7); LYMPH#(MANUAL) 2.21 x10^3/uL (1-3.4); LYMPHS% (MANUAL) 33 % (22-44); MONOS#(MANUAL) 0.27 x10^3/uL (0.3-2.7); MONOS% (MANUAL) 4 % (2-9); REACTIVE LYMPHS # (MANUAL) 0.13 x10^3/uL (0-0); REACTIVE LYMPHS % (MANUAL) 2 % (0-0); SEG#(MANUAL) 3.69 x10^3/uL (1.8-6.8); SEGS% (MANUAL) 55 % (42-75)
[2020-01-22 06:36] LABS: ANISOCYTOSIS 1+; MICROCYTOSIS 1+
[2020-01-22 06:37] LABS: <PLATELET ESTIMATE> ADEQUATE; <PLT MORPHOLOGY> NORMAL PLT MORPH; HYPOCHROMIA 2+; OVALOCYTES 1+; SCHISTOCYTES 1+
[2020-01-22 07:15] VITALS: BP 111/78
[2020-01-22 11:59] VITALS: BP 99/67
[2020-01-22] MEDS ORDERED: D5%-0.9% NACL 1,000 ML IV SCH (12:30)
[2020-01-22] MEDS: HYDROcodone/APAP 5/325 TABLET PO PRN ×2 (15:11→20:02)
[2020-01-22] MEDS ORDERED: OMNIPAQUE 350 MG/ML, 100ML BOTTLE ONE (17:39)
[2020-01-22 19:36] VITALS: BP 120/88
[2020-01-22] MEDS: ENOXAPARIN 40 MG/0.4 ML SQ SCH (19:59)
[2020-01-22] MEDS: LORazepam 0.5MG TABLET PO PRN (20:00)
[2020-01-23] MEDS ORDERED: BUTA-177 PO (00:01)
[2020-01-23] MEDS ORDERED: CLON1TAB11 PO (00:01)
[2020-01-23] MEDS ORDERED: QUET150T4 PO (00:04)
[2020-01-23 01:41] VITALS: BP 106/70
[2020-01-23] MEDS: LORazepam 0.5MG TABLET PO PRN (03:37)
[2020-01-23] MEDS: HYDROcodone/APAP 5/325 TABLET PO PRN (03:37)
[2020-01-23] MEDS: ACETAMINOPHEN 325 MG TABLET PO PRN (03:37)
[2020-01-23 05:38] LABS: BASOPHILS # (AUTO) 0.03 x10^3/uL (0-0.1); BASOPHILS % (AUTO) 1 % (0-1); EOSINOPHILS # (AUTO) 0.55 x10^3/uL (0-0.4); EOSINOPHILS % (AUTO) 9 % (1-7); LYMPHOCYTES # (AUTO) 2.06 x10^3/uL (1-3.4); LYMPHOCYTES % (AUTO) 32 % (22-44); MD NO; MEAN CORPUSCULAR HGB CONC 30.2 g/dL (32.4-35.8); MEAN CORPUSCULAR VOLUME 66.1 fL (80-100); MEAN PLATELET VOLUME 7.6 fL (7.4-10.4); MONOCYTES # (AUTO) 0.31 x10^3/uL (0.2-0.8); MONOCYTES % (AUTO) 5 % (2-9); NEUTROPHILS # (AUTO) 3.59 x10^3/uL (1.8-6.8); NEUTROPHILS % (AUTO) 55 % (42-75); PLATELET COUNT 421 x10^3/uL (130-400); RED BLOOD COUNT 4.22 x10^6/uL (3.82-5.3); RED CELL DISTRIBUTION WIDTH 18.2 % (9.6-15.2)
[2020-01-23 05:45] LABS: C-REACTIVE PROTEIN, QUANT 0.1 mg/dL (0.02-0.49)
[2020-01-23 05:49] LABS: PREALBUMIN 26.3 mg/dL (20.0-40.0)
[2020-01-23 06:08] LABS: HCT (SEDRATE) 27.8 % (34.6-47.8)
[2020-01-23] MEDS: GABAPENTIN 400 MG CAPSULE PO SCH ×2 (06:16→09:46)
[2020-01-23 07:05] VITALS: BP 93/62
[2020-01-23] MEDS: BUTALB/APAP/CAFFEINE 50MG/325MG/40MG PO PRN (09:46)
[2020-01-23] MEDS: IRON SUCROSE COMPLEX 100MG/5ML IV SCH ×2 (09:46→09:55)
[2020-01-23 10:24] LABS: OCCULT BLOOD NEGATIVE (NEGATIVE)
[2020-01-23] MEDS ORDERED: FERR324T5 PO (10:35)
== END 2020-01-23 12:30 | disposition home or self-care (01) | DRG 103 ==
LOC: ED 19:12 → EDIP 22:33 → 4WST 23:28
PROVIDERS: ADMIT Family Medicine; ATTEND Internal Medicine
PROC: 4A00X4Z Measurement of Central Nervous Electrical Activity, External Approach (ICD-10-PCS; principal; 2020-01-22)
DX: G43.809 Other migraine, not intractable, without status migrainosus (principal); K50.90 Crohn's disease, unspecified, without complications; R56.9 Unspecified convulsions; D50.9 Iron deficiency anemia, unspecified; G89.4 Chronic pain syndrome; F41.9 Anxiety disorder, unspecified; Z90.49 Acquired absence of other specified parts of digestive tract; G25.81 Restless legs syndrome; T40.605A Adverse effect of unspecified narcotics, initial encounter; Z66 Do not resuscitate; Z88.5 Allergy status to narcotic agent; Z88.0 Allergy status to penicillin; Z88.8 Allergy status to other drugs, medicaments and biological substances; Z88.6 Allergy status to analgesic agent; Z91.040 Latex allergy status; Z86.711 Personal history of pulmonary embolism; Z98.84 Bariatric surgery status; Z72.0 Tobacco use
CPT/HCPCS: 36415; 70450; 70496; 70498; 70551; 74177; 80048; 80053; 81003; 82272; 82728; 83540; 83550; 83690; 83735; 84100; 84134; 84443; 84484; 84703; 85025; 85651; 86140; 86592; 87806; 93306; 93880; 95819; 99285; G0378; J1650; J1756; J2405; J2550; J7042; Q9967; G0475; J7030

== ENCOUNTER → 2020-03-16 | Outpatient (CLI) | payer MEDICARE ==
[~2020-03-16] MED LIST changes: +BUTA-177 PO; +FERR324T5 PO; +FIORICET PO; +QUET150T4 PO
== END | disposition home or self-care (01) ==
LOC: CFH 07:34
PROVIDERS: ATTEND Internal Medicine Cardiovascular Disease
DX: I25.89 Other forms of chronic ischemic heart disease (principal); I49.3 Ventricular premature depolarization
CPT/HCPCS: 78452; 93017; A9502

== ENCOUNTER 2020-04-05 07:59 | Day surgery (SDC) | payer MEDICARE, MEDICAID ==
[~2020-04-05] VITALS: Ht 157.5 cm; Wt 63.6 kg
[2020-04-05] MEDS ORDERED: SODIUM CHLORIDE 0.9% 1,000 ML IV SCH ×2 (08:26→10:31)
[2020-04-05 08:29] VITALS: BP 131/78
[2020-04-05] MEDS ORDERED: QUET300T PO (08:51)
[2020-04-05] MEDS ORDERED: SUCR1TAB PO (08:51)
[2020-04-05] MEDS ORDERED: DOCU-180 PO (08:51)
[2020-04-05] MEDS ORDERED: MULT-658 PO (08:51)
[2020-04-05] MEDS ORDERED: DIPH25TA50 PO (08:51)
[2020-04-05] MEDS ORDERED: GABA-827 PO (08:51)
[2020-04-05] MEDS ORDERED: FISH400C2 PO (08:51)
[2020-04-05] MEDS ORDERED: MAGN400T36 PO (08:51)
[2020-04-05] MEDS ORDERED: CHOL10003 PO (08:51)
[2020-04-05] MEDS ORDERED: IRON15TA3 PO (08:51)
[2020-04-05] MEDS ORDERED: CLON1TAB11 PO (08:51)
[2020-04-05] MEDS ORDERED: TIZA4TAB2 PO (08:51)
[2020-04-05] MEDS ORDERED: CYAN250013 PO (08:51)
[2020-04-05 08:55] LABS: MEAN CORPUSCULAR HEMOGLOBIN 23.2 pg (27.0-34.8); MEAN CORPUSCULAR VOLUME 74.8 fL (80-100); MEAN PLATELET VOLUME 7.7 fL (7.4-10.4); PLATELET COUNT 358 x10^3/uL (130-400); RED BLOOD COUNT 4.92 x10^6/uL (3.82-5.3); RED CELL DISTRIBUTION WIDTH 26.4 % (9.6-15.2)
[2020-04-05 08:58] LABS: ANION GAP 6 mmol/L (5-15); CALCIUM 8.8 mg/dL (8.5-10.1); CHLORIDE 108 mmol/L (98-107)
[2020-04-05] MEDS ORDERED: MIDAZOLAM 1 MG/ML, 5ML ONE (08:58)
[2020-04-05] MEDS ORDERED: FENTANYL PF 100 MCG/2ML ONE ×2 (08:58→10:18)
[2020-04-05] MEDS ORDERED: TICAGRELOR 90 MG TABLET ONE (08:59)
[2020-04-05] MEDS ORDERED: HEPARIN 1,000 UNITS/ML, 10ML ONE (08:59)
[2020-04-05] MEDS ORDERED: LIDOCAINE-MPF 1%, 5ML ONE (08:59)
[2020-04-05] MEDS ORDERED: BIVALIRUDIN 250 MG ONE (08:59)
[2020-04-05] MEDS ORDERED: VERAPAMIL 2.5 MG/ML, 2ML ONE (08:59)
[2020-04-05 09:12] LABS: BASOPHILS # (AUTO) 0.04 x10^3/uL (0-0.1); BASOPHILS % (AUTO) 1 % (0-1); EOSINOPHILS # (AUTO) 0.15 x10^3/uL (0-0.4); EOSINOPHILS % (AUTO) 2 % (1-7); LYMPHOCYTES % (AUTO) 38 % (22-44); MD SCAN; MONOCYTES # (AUTO) 0.45 x10^3/uL (0.2-0.8); MONOCYTES % (AUTO) 7 % (2-9); NEUTROPHILS # (AUTO) 3.36 x10^3/uL (1.8-6.8); NEUTROPHILS % (AUTO) 53 % (42-75)
[2020-04-05] MEDS ORDERED: MIDAZOLAM 1 MG/ML, 2ML ONE (10:18)
== END 2020-04-05 12:07 | disposition home or self-care (01) ==
LOC: CACL 07:59
PROVIDERS: ATTEND Internal Medicine Cardiovascular Disease
DX: R94.39 Abnormal result of other cardiovascular function study (principal); I08.0 Rheumatic disorders of both mitral and aortic valves; I25.9 Chronic ischemic heart disease, unspecified; I20.9 Angina pectoris, unspecified; K22.9 Disease of esophagus, unspecified; G43.909 Migraine, unspecified, not intractable, without status migrainosus; K50.90 Crohn's disease, unspecified, without complications; Z79.891 Long term (current) use of opiate analgesic; Z79.899 Other long term (current) drug therapy; Z86.711 Personal history of pulmonary embolism; Z87.891 Personal history of nicotine dependence; Z88.0 Allergy status to penicillin; Z88.5 Allergy status to narcotic agent; Z88.8 Allergy status to other drugs, medicaments and biological substances; Z91.040 Latex allergy status
CPT/HCPCS: 36415; 80048; 85025; 93458; 99156; C1769; C1894; J1644; J2250; J3010; Q9967; J0583

== ENCOUNTER → 2020-06-14 | Outpatient (CLI) | payer MEDICARE, MEDICAID ==
[~2020-06-14] MED LIST changes: +CHOL10003 PO; +CYAN250013 PO; +DIPH25TA50 PO; +FISH400C2 PO; +IRON15TA3 PO; +MAGN400T36 PO; +MULT-658 PO; +QUET300T PO; +SUCR1TAB PO; +TIZA4TAB2 PO
== END | disposition home or self-care (01) ==
LOC: RAD 12:26
PROVIDERS: ATTEND Surgery
DX: K31.84 Gastroparesis (principal); K21.9 Gastro-esophageal reflux disease without esophagitis; R11.2 Nausea with vomiting, unspecified; R12 Heartburn; R14.0 Abdominal distension (gaseous); Z98.84 Bariatric surgery status
CPT/HCPCS: 78264; A9541

== ENCOUNTER → 2020-06-21 | Outpatient (CLI) | payer MEDICARE, MEDICAID | END | disposition home or self-care (01) | LOC: RAD 08:24 | PROVIDERS: ATTEND Surgery | DX: K44.9 Diaphragmatic hernia without obstruction or gangrene (principal); K21.9 Gastro-esophageal reflux disease without esophagitis; R12 Heartburn; K22.2 Esophageal obstruction; R14.0 Abdominal distension (gaseous); R11.2 Nausea with vomiting, unspecified; Z98.84 Bariatric surgery status | CPT/HCPCS: 74240 ==

== ENCOUNTER 2020-06-27 19:30 | Emergency (ER) | payer MEDICARE, MEDICAID ==
[~2020-06-27] VITALS: Ht 157.5 cm; Wt 64.7 kg
[2020-06-27 19:32] VITALS: BP 124/96
[2020-06-27] MEDS ORDERED: LIDOCAINE-MPF 1%, 5ML ONE (19:48)
[2020-06-27] MEDS ORDERED: LIDOCAINE 1%, 10ML INFIL ONE (20:00)
--- NOTE | 2020-06-27 21:42 | NUR ---
MULTIPLE ATTEMPTS TO IRRGATE EAR BY DIFFERENT ED STAFF WITHOUT SUCCESS. ENT TO BE PAGED.
[2020-06-27] MEDS ORDERED: HYDROcodone/APAP 5/325 TABLET ONE (22:02)
--- NOTE | 2020-06-27 22:04 | NUR ---
PATIENT MEDICATED PER, TOLERATED WELL
[2020-06-27] MEDS ORDERED: HYDROcodone/APAP 5/325 TABLET PO ONE (22:30)
--- NOTE | 2020-06-27 22:37 | NUR ---
Patient/Caregiver given discharge instructions and they have confirmed that they understand the instructions. Patient ambulatory with steady gait.
== END 2020-06-27 22:39 | disposition home or self-care (01) ==
LOC: ED 21:23
DX: T16.2XXA Foreign body in left ear, initial encounter (principal); H92.02 Otalgia, left ear; G43.909 Migraine, unspecified, not intractable, without status migrainosus; Z87.891 Personal history of nicotine dependence; X58.XXXA Exposure to other specified factors, initial encounter; Y93.89 Activity, other specified; Y92.89 Other specified places as the place of occurrence of the external cause; Y99.8 Other external cause status
CPT/HCPCS: 69200; 99284

== ENCOUNTER 2020-07-02 00:29 | Inpatient (IN) | payer MEDICARE, MEDICAID ==
[2020-07-02] VITALS (11 sets, daily range): BP systolic 63–127; BP diastolic 33–95
[~2020-07-02] VITALS: Ht 157.5 cm; Wt 66.8 kg
--- NOTE | 2020-07-02 00:44 | NUR ---
PT SAYS HER LEGS ARENT WORKING. PT SAYS SHE GOT EAR DROPS 4 DAYS AGO AND THAT IS WHEN SYMPTOMS STARTED. PT SAYS SHE HAS BEEN FEELING DIZZY AND WEAK
[2020-07-02] MEDS ORDERED: THIAMINE 100 MG in DEXTROSE 5% 50 ML IVPB ONE (01:00)
[2020-07-02] MEDS ORDERED: SODIUM CHLORIDE 0.9% 1,000ML IVBOLUS ONE (01:00)
[2020-07-02] MEDS ORDERED: SODIUM CHLORIDE FLUSH 10ML SYR IVF ONE (01:00)
[2020-07-02 01:21] LABS: BASOPHILS # (AUTO) 0.05 x10^3/uL (0-0.1); BASOPHILS % (AUTO) 1 % (0-1); EOSINOPHILS # (AUTO) 0.41 x10^3/uL (0-0.4); EOSINOPHILS % (AUTO) 5 % (1-7); LYMPHOCYTES % (AUTO) 28 % (22-44); MD NO; MEAN CORPUSCULAR HEMOGLOBIN 26.6 pg (27.0-34.8); MEAN CORPUSCULAR HGB CONC 31.4 g/dL (32.4-35.8); MEAN CORPUSCULAR VOLUME 84.8 fL (80-100); MEAN PLATELET VOLUME 6.7 fL (7.4-10.4); MONOCYTES # (AUTO) 0.37 x10^3/uL (0.2-0.8); MONOCYTES % (AUTO) 5 % (2-9); NEUTROPHILS # (AUTO) 4.97 x10^3/uL (1.8-6.8); NEUTROPHILS % (AUTO) 61 % (42-75); PLATELET COUNT 550 x10^3/uL (130-400); RED BLOOD COUNT 4.62 x10^6/uL (3.82-5.3); RED CELL DISTRIBUTION WIDTH 19.9 % (9.6-15.2)
[2020-07-02 01:31] LABS: ALANINE AMINOTRANSFERASE 10 U/L (12-78); ALBUMIN 2.5 g/dL (3.4-5.0); ANION GAP 5 mmol/L (5-15); CALCIUM 8.6 mg/dL (8.5-10.1); CHLORIDE 106 mmol/L (98-107); CREATININE 0.73 mg/dL (0.55-1.02)
[2020-07-02 01:39] LABS: ALKALINE PHOSPHATASE 135 U/L (45-117); TOTAL PROTEIN 6.4 g/dL (6.4-8.2)
[2020-07-02 01:46] LABS: BILIRUBIN,TOTAL < 0.1 mg/dL (0.2-1.0)
[2020-07-02 02:16] LABS: HCT (SEDRATE) 39.1 % (34.6-47.8)
[2020-07-02] MEDS ORDERED: ACETAMINOPHEN 325 MG TABLET ONE (02:46)
--- NOTE | 2020-07-02 02:56 | NUR ---
pt ambulated to br with husbands help urine sent to lab
[2020-07-02] MEDS ORDERED: ACETAMINOPHEN 325 MG TABLET PO ONE (03:00)
[2020-07-02 03:06] LABS: MICROSCOPIC INDICATED
[2020-07-02 03:14] LABS: AMPHETAMINE SCREEN, URINE Negative (Negative); BARBITURATE SCREEN, URINE Negative (Negative); BENZODIAZEPINE SCREEN, URINE Negative (Negative); CANNABINOID SCREEN, URINE Negative (Negative); COCAINE SCREEN, URINE Negative (Negative); METHADONE SCREEN, URINE Negative (Negative); OPIATE SCREEN, URINE Positive (Negative)
--- NOTE | 2020-07-02 03:24 | NUR ---
awaiting admit pt sleeping on gurney in nad
--- NOTE | 2020-07-02 04:16 | NUR ---
report to jamaal pt to floor with tech
[2020-07-02] MEDS ORDERED: PROMETHAZINE 25 MG/ML, 1ML IM PRN (04:30)
[2020-07-02] MEDS ORDERED: ACETAMINOPHEN 325 MG TABLET PO PRN (04:30)
[2020-07-02] MEDS ORDERED: POTASSIUM CHLORIDE 20 MEQ TAB.ER.PRT PO ONE (04:30)
[2020-07-02] MEDS ORDERED: POTASSIUM CHLORIDE 40 MEQ in SODIUM CHLORIDE 0.9% 500 ML IV ONE (04:30)
[2020-07-02] MEDS ORDERED: ONDANSETRON 2MG/ML, 2ML IVPush PRN (04:30)
[2020-07-02] MEDS ORDERED: ENALAPRILAT 1.25 MG/ML, 2ML IVPush PRN (04:30)
--- NOTE | 2020-07-02 04:51 | NUR ---
pt status upgraded to tele 2 report to mallory pt to floor with tech
[2020-07-02] MEDS ORDERED: HYDR-3246 PO (05:36)
[2020-07-02] MEDS ORDERED: METH750T87 PO (05:36)
[2020-07-02] MEDS ORDERED: QUET300T7 PO (05:45)
[2020-07-02] MEDS ORDERED: RIME75TA PO (05:45)
[2020-07-02] MEDS ORDERED: HYDR-3237 PO (05:45)
[2020-07-02] MEDS ORDERED: FREM225A SQ (05:45)
[2020-07-02] MEDS ORDERED: BUTA1CAP5 PO (05:45)
[2020-07-02] MEDS: SUCRALFATE 1 GM TABLET PO SCH ×2 (08:49→20:15)
[2020-07-02] MEDS: MAGNESIUM OXIDE 400 MG TABLET PO SCH (08:49)
[2020-07-02] MEDS: ENOXAPARIN 40 MG/0.4 ML SQ SCH (08:49)
[2020-07-02] MEDS: MULTIVITAMIN 1 TABLET PO SCH (08:49)
[2020-07-02] MEDS: BUTALB/APAP/CAFFEINE 50MG/325MG/40MG PO PRN ×3 (08:49→17:40)
[2020-07-02] MEDS: GABAPENTIN 400 MG CAPSULE PO SCH ×3 (08:50→20:05)
[2020-07-02] MEDS: OMEGA-3/FISH OIL CAPSULE PO SCH (08:50)
[2020-07-02] MEDS: HYDROcodone/APAP 5/325 TABLET PO PRN ×2 (08:50→16:13)
[2020-07-02] MEDS: CYANOCOBALAMIN 1,000 MCG TABLET PO SCH (08:51)
[2020-07-02] MEDS: DOCUSATE 100 MG CAPSULE PO SCH (08:51)
[2020-07-02] MEDS: PANTOPRAZOLE 40MG TABLET PO SCH (08:51)
[2020-07-02] MEDS ORDERED: IRON CARBONYL 65 MG PO SCH (09:00)
[2020-07-02] MEDS ORDERED: METHOCARBAMOL 750 MG TABLET PO PRN (12:00)
[2020-07-02] MEDS: CALCIUM CARBONATE 500 MG TAB.CHEW PO PRN ×2 (12:30→20:15)
[2020-07-02 12:48] LABS: BASOPHILS # (AUTO) 0.05 x10^3/uL (0-0.1); BASOPHILS % (AUTO) 1 % (0-1); EOSINOPHILS % (AUTO) 3 % (1-7); LYMPHOCYTES # (AUTO) 1.59 x10^3/uL (1-3.4); LYMPHOCYTES % (AUTO) 24 % (22-44); MD NO; MEAN CORPUSCULAR HEMOGLOBIN 26.6 pg (27.0-34.8); MEAN CORPUSCULAR HGB CONC 31.3 g/dL (32.4-35.8); MEAN CORPUSCULAR VOLUME 85.1 fL (80-100); MEAN PLATELET VOLUME 6.6 fL (7.4-10.4); MONOCYTES % (AUTO) 3 % (2-9); NEUTROPHILS # (AUTO) 4.52 x10^3/uL (1.8-6.8); NEUTROPHILS % (AUTO) 69 % (42-75); PLATELET COUNT 556 x10^3/uL (130-400); RED BLOOD COUNT 4.74 x10^6/uL (3.82-5.3); RED CELL DISTRIBUTION WIDTH 20.3 % (9.6-15.2)
[2020-07-02 13:31] LABS: ANION GAP 6 mmol/L (5-15); CALCIUM 8.6 mg/dL (8.5-10.1); CHLORIDE 110 mmol/L (98-107)
[2020-07-02 13:34] LABS: CREATININE 0.63 mg/dL (0.55-1.02)
[2020-07-02] MEDS: POTASSIUM CHLORIDE 20 MEQ in SODIUM CHLORIDE 0.9% 1,000 ML IV SCH ×2 (13:35→21:01)
[2020-07-02] MEDS: POTASSIUM ACID PHOSPHATE 500 MG TABLET.SOL PO SCH (20:15)
[2020-07-02] MEDS ORDERED: QUETIAPINE 100MG TABLET PO SCH (21:00)
[2020-07-02] MEDS ORDERED: TIZANIDINE 4MG TABLET PO SCH ×2 (21:00)
[2020-07-03 00:03] VITALS: BP 122/71
[2020-07-03] MEDS: POTASSIUM ACID PHOSPHATE 500 MG TABLET.SOL PO SCH ×2 (02:04→08:24)
[2020-07-03] MEDS: BUTALB/APAP/CAFFEINE 50MG/325MG/40MG PO PRN (02:05)
[2020-07-03] MEDS: POTASSIUM CHLORIDE 20 MEQ in SODIUM CHLORIDE 0.9% 1,000 ML IV SCH ×2 (03:51→09:28)
[2020-07-03 05:34] LABS: BASOPHILS # (AUTO) 0.06 x10^3/uL (0-0.1); BASOPHILS % (AUTO) 1 % (0-1); CHLORIDE 112 mmol/L (98-107); EOSINOPHILS # (AUTO) 0.12 x10^3/uL (0-0.4); EOSINOPHILS % (AUTO) 2 % (1-7); LYMPHOCYTES # (AUTO) 2.36 x10^3/uL (1-3.4); LYMPHOCYTES % (AUTO) 32 % (22-44); MD NO; MEAN CORPUSCULAR HGB CONC 31.4 g/dL (32.4-35.8); MEAN CORPUSCULAR VOLUME 85.9 fL (80-100); MONOCYTES # (AUTO) 0.37 x10^3/uL (0.2-0.8); MONOCYTES % (AUTO) 5 % (2-9); NEUTROPHILS # (AUTO) 4.37 x10^3/uL (1.8-6.8); NEUTROPHILS % (AUTO) 60 % (42-75); PLATELET COUNT 440 x10^3/uL (130-400); RED BLOOD COUNT 4.43 x10^6/uL (3.82-5.3); RED CELL DISTRIBUTION WIDTH 20.3 % (9.6-15.2)
[2020-07-03 05:41] LABS: ANION GAP 8 mmol/L (5-15); CALCIUM 8.2 mg/dL (8.5-10.1); CREATININE 0.61 mg/dL (0.55-1.02)
[2020-07-03 07:58] VITALS: BP_SYST 105; BP_SYST 120; BP_SYST 83; BP_DIAS 65; BP_DIAS 71; BP_DIAS 80
[2020-07-03] MEDS: PANTOPRAZOLE 40MG TABLET PO SCH (08:23)
[2020-07-03] MEDS: SUCRALFATE 1 GM TABLET PO SCH (08:23)
[2020-07-03] MEDS: OMEGA-3/FISH OIL CAPSULE PO SCH (08:23)
[2020-07-03] MEDS: HYDROcodone/APAP 5/325 TABLET PO PRN (08:23)
[2020-07-03] MEDS: MULTIVITAMIN 1 TABLET PO SCH (08:24)
[2020-07-03] MEDS: CYANOCOBALAMIN 1,000 MCG TABLET PO SCH (08:24)
[2020-07-03] MEDS: GABAPENTIN 400 MG CAPSULE PO SCH (08:24)
[2020-07-03] MEDS: MAGNESIUM OXIDE 400 MG TABLET PO SCH (08:24)
[2020-07-03] MEDS: DOCUSATE 100 MG CAPSULE PO SCH (08:27)
[2020-07-03] MEDS: ENOXAPARIN 40 MG/0.4 ML SQ SCH (09:00)
[2020-07-03] MEDS ORDERED: MIDODRINE 5 MG TABLET PO SCH ×2 (09:00→21:00)
[2020-07-03] MEDS ORDERED: MIDO5TAB9 PO (09:10)
== END 2020-07-03 10:05 | disposition home or self-care (01) | DRG 312 ==
LOC: ED 00:56 → EDIP 03:26 → 4WST 05:04
PROVIDERS: ADMIT Family Medicine; ATTEND Internal Medicine
DX: I95.1 Orthostatic hypotension (principal); E43 Unspecified severe protein-calorie malnutrition; F11.20 Opioid dependence, uncomplicated; K31.1 Adult hypertrophic pyloric stenosis; K50.90 Crohn's disease, unspecified, without complications; E87.6 Hypokalemia; Z66 Do not resuscitate; M51.34 Other intervertebral disc degeneration, thoracic region; R00.1 Bradycardia, unspecified; E83.39 Other disorders of phosphorus metabolism; E86.0 Dehydration; F17.200 Nicotine dependence, unspecified, uncomplicated; F41.9 Anxiety disorder, unspecified; F51.04 Psychophysiologic insomnia; G43.919 Migraine, unspecified, intractable, without status migrainosus; G89.4 Chronic pain syndrome; J44.9 Chronic obstructive pulmonary disease, unspecified; K21.9 Gastro-esophageal reflux disease without esophagitis; K22.2 Esophageal obstruction; M54.9 Dorsalgia, unspecified; R29.6 Repeated falls; R79.89 Other specified abnormal findings of blood chemistry; Z68.26 Body mass index [BMI] 26.0-26.9, adult; Z86.711 Personal history of pulmonary embolism; Z90.49 Acquired absence of other specified parts of digestive tract; Z98.84 Bariatric surgery status
CPT/HCPCS: 36415; 70450; 80048; 80053; 80307; 81001; 82607; 83735; 84100; 84443; 85025; 85651; 86140; 93005; 96365; G0378; J1650; J3411; J3480; J7030; J7040

== ENCOUNTER 2020-07-22 14:12 | Emergency (ER) | payer MEDICARE, MEDICAID ==
[~2020-07-22] VITALS: Ht 157.5 cm; Wt 63.9 kg
[~2020-07-22 14:12] MED LIST changes: +BUTA1CAP5 PO; +FREM225A SQ; +HYDR-3246 PO; +MIDO5TAB9 PO; +QUET300T7 PO; +RIME75TA PO
--- NOTE | 2020-07-22 14:48 | NUR ---
PT CAME IN CO OF PAIN, REDNESS, DRAINAGE AND FOUL ODOR FROM HER J TUBE INCISION. PT HAD J TUBE PLACED AFTER A GASTRIC BYPASS REVERSAL SURGERY. PT HAS HAD THE J TUBE FOR WEEKS AND DOESNT USE IT. SHE WANTS IT REMOVED IF IT CAN BE. PT HAS BEEN CO OF FEVERS, CHILLS, NAUSEA SINCE THE J TUBE WAS PLACED. PT RESTING IN [facility]. ACCOMPANIED BY
[2020-07-22 15:47] VITALS: BP 147/97
--- NOTE | 2020-07-22 15:47 | NUR ---
PT AMBULATED TO BATHROOM WITH ASSISTANCE FROM
[2020-07-22] MEDS ORDERED: OMNIPAQUE 350 MG/ML, 50 ML BOTTLE ONE (15:52)
--- NOTE | 2020-07-22 17:20 | NUR ---
BREAK RN- DRESSING PLACED. DISCHARGE INSTRUCTIONS REVIEWED.
== END 2020-07-22 17:22 | disposition home or self-care (01) ==
LOC: ED 16:42
DX: L03.311 Cellulitis of abdominal wall (principal); E11.9 Type 2 diabetes mellitus without complications; K50.90 Crohn's disease, unspecified, without complications
CPT/HCPCS: 74018; 99283; Q9967

== ENCOUNTER 2021-03-14 10:58 | Inpatient (IN) | payer MEDICARE, MEDICAID ==
[~2021-03-14] VITALS: Ht 160 cm; Wt 101.0 kg
[~2021-03-14 10:58] MED LIST changes: -DOCU-180 PO; +DOCU-192 PO; -HYDR-3246 PO; +HYDR-3248 PO; -PRAM0.37 PO; +[UNRECOGNIZED DRUG - CODE] PO
--- NOTE | 2021-03-14 11:03 | NUR ---
PT BIBA. PER EMS PT HAD GASTRECTOMY 03/02 AND HAS BEEN HYPOTENSIVE SINCE SURGERY PER . PT WENT TO DR TODAY TO GET TRUNG REMOVED AND HAD BP OF 60/40. PT BP CURRENTLY 106/58. PER EMS LEVO HAS BEEN RUNNING AT 6MCG/MIN AND 500ML OF NS HAS BEEN GIVEN. DR. BRAMBILA AT BEDSIDE. PT ALSO HAS UPPER LIP SWELLING, BUT HAS NOT TAKEN ANY NEW MEDICATIONS PER . PT IS ALLERGIC TO BENADRYL. EKG DONE. PT RESTING IN [facility], MONITORING IN PLACE, NADN AT THIS TIME, WCTM.
--- NOTE | 2021-03-14 11:20 | NUR ---
PER , PT HAS NOT URINATED OR HAD BM IN OVER A WEEK.
--- NOTE | 2021-03-14 11:25 | NUR ---
CURRIE PLACED WITH IMMEDIATE DARK YELLOW 800 CC OUTPUT. URINE COLLECTED/WALKED TO LAB. ATTEMPTS FOR 2ND IV, MANAGED SERVICES CONSULTANT AT BS WITH US.
[2021-03-14] MEDS ORDERED: METRONIDAZOLE PMX 500MG/100ML 100 ML IV ONE (11:30)
[2021-03-14] MEDS ORDERED: CEFEPIME 2 GM in DEXTROSE 5% 100 ML IV ONE (11:30)
[2021-03-14] MEDS ORDERED: SODIUM CHLORIDE 0.9% 1,000ML IVBOLUS ONE ×2 (11:30→15:00)
[2021-03-14] MEDS: NOREPINEPHRINE 8 MG in SODIUM CHLORIDE 0.9% 242 ML IV PRN ×2 (11:36→18:15)
--- NOTE | 2021-03-14 11:45 | NUR ---
WILMER COMPLETED. LAB AT FOR LABS INCLUDING BC X 2.
--- NOTE | 2021-03-14 11:58 | NUR ---
ANTIBIOTIC INFUSING AFTER BC X 2 DRAWN. BP 126/65. HOB ELEVATED PER PT REQUEST.
[2021-03-14 12:11] LABS: MEAN CORPUSCULAR HEMOGLOBIN 30.4 pg (27.0-34.8); MEAN CORPUSCULAR HGB CONC 33.7 g/dL (32.4-35.8); MEAN PLATELET VOLUME 6.7 fL (7.4-10.4); PLATELET COUNT 734 x10^3/uL (130-400); RED BLOOD COUNT 3.49 x10^6/uL (3.82-5.3); RED CELL DISTRIBUTION WIDTH 14.7 % (9.6-15.2)
[2021-03-14 12:17] LABS: MICROSCOPIC AUTO
[2021-03-14 12:20] LABS: ALANINE AMINOTRANSFERASE 37 U/L (12-78); ALBUMIN 1.4 g/dL (3.4-5.0); ANION GAP 10 mmol/L (5-15); CALCIUM 7.3 mg/dL (8.5-10.1); CHLORIDE 108 mmol/L (98-107); CREATININE 1.22 mg/dL (0.55-1.02)
[2021-03-14 12:25] LABS: ALKALINE PHOSPHATASE 238 U/L (45-117); BILIRUBIN,TOTAL 0.4 mg/dL (0.2-1.0); TOTAL PROTEIN 5.4 g/dL (6.4-8.2); TROPONIN I < 0.015 ng/mL (0.000-0.045)
--- NOTE | 2021-03-14 12:35 | NUR ---
HR INCREASE FROM 70S ON ARRIVAL TO 120S. PT REPORTING SOME STERNAL CHEST PAIN. REPEAT EKG COMPLETED. ERP NOTIFIED.
[2021-03-14] MEDS ORDERED: METRONIDAZOLE PMX 500MG/100ML 100 ML ONE (12:39)
--- NOTE | 2021-03-14 13:06 | NUR ---
REPORT TO ILIANA CALDERON, TRANSFER OF CARE AT THIS.
--- NOTE | 2021-03-14 13:54 | NUR ---
PT TO CT. US GUIDED IV STARTED BY DR. BRAMBILA.
[2021-03-14 13:57] LABS: BAND#(MANUAL) 0.62 x10^3/uL; BANDS%(MANUAL) 6 % (0-7); BASOS% (MANUAL) 1 % (0-1); EOS% (MANUAL) 1 % (1-7); LYMPH#(MANUAL) 2.47 x10^3/uL (1-3.4); LYMPHS% (MANUAL) 24 % (22-44); METAMYELOCYTES% (MANUAL) 1 % (0-1); MONOS#(MANUAL) 0.21 x10^3/uL (0.3-2.7); MONOS% (MANUAL) 2 % (2-9); SEGS% (MANUAL) 65 % (42-75)
[2021-03-14 13:58] LABS: ANISOCYTOSIS 1+
[2021-03-14 13:59] LABS: ECHINOCYTES 2+
[2021-03-14 14:01] LABS: <PLATELET ESTIMATE> INCREASED; PMNS WITH VACUOLES 1+; SMALL PLATELETS 1+
--- NOTE | 2021-03-14 14:12 | NUR ---
PT BACK FROM CT. LEVOPHED TITRATED DOWN TO 0.1 MCG/KG/MIN.
[2021-03-14] MEDS ORDERED: OMNIPAQUE 350 MG/ML, 100ML BOTTLE ONE (14:22)
--- NOTE | 2021-03-14 14:55 | NUR ---
DR. BRAMBILA AT BEDSIDE. ABSCESS FOUND ON CT AROUND SPLEEN. LEVOPHED STARTED AGAIN WITH BP AT 79/43.
[2021-03-14] MEDS ORDERED: HYDROCORTISONE 100 MG INJ. IVPush ONE (15:01)
[2021-03-14] MEDS ORDERED: HYDROCORTISONE 100 MG INJ. ONE (15:15)
--- NOTE | 2021-03-14 15:15 | NUR ---
REPORT TO DAMASO CALDERON.
--- NOTE | 2021-03-14 15:16 | NUR ---
Bedside report received from YUMIKO Harris. Assumed care of pt. Pt currently resting on gurney and appears to be dozing comfortably. Pt awakens easily to name being called. Pt requested and was provided with blanket. Pt on cont BP, cardiac and SPO2 monitors. at bedside. Call light within reach. Will cont to monitor pt.
--- NOTE | 2021-03-14 15:49 | NUR ---
Report to CCU YUMIKO Galvan.
--- NOTE | 2021-03-14 16:05 | NUR ---
ADMITTING MD DEFTU AT BEDSIDE FOR EVAL.
--- NOTE | 2021-03-14 16:24 | NUR ---
SIGNED CONSENT OBTAINED FROM WHO IS POA. CENTRAL LINE SUCCESSFULLY INSERTED BY YOLANDA BRAMBILA. PT AWAKE AND AO X 4. THICK SPEECH FROM SWOLLEN TONGUE/LIPS. YOLANDA BRAMBILA AND ADMITTING MD LOYA AWARE. PT HAS BEEN MEDICATED WITH STEROIDS. PT ON CONT BP, CARDIAC AND SPO2 MONITORS.
[2021-03-14] MEDS ORDERED: VANCOMYCIN PMX 1GM/200ML 200 ML IV ONE (17:30)
[2021-03-14] MEDS ORDERED: POTASSIUM CHLORIDE 40 MEQ in SODIUM CHLORIDE 0.9% 100 ML IV ONE (17:30)
[2021-03-14] MEDS ORDERED: VANCOMYCIN PER PHARMACY MC PRN (17:30)
[2021-03-14] MEDS ORDERED: morphine SULFATE 10 MG/ML, 1ML IVPush PRN (17:30)
[2021-03-14] MEDS ORDERED: ONDANSETRON 2MG/ML, 2ML IVPush PRN (17:30)
[2021-03-14] MEDS ORDERED: NOREPINEPHRINE 8 MG in SODIUM CHLORIDE 0.9% 242 ML IV PRN (17:30)
--- NOTE | 2021-03-14 17:48 | NUR ---
SURGEON DR. DUBON AT BEDSIDE FOR EVAL AT THIS TIME.
[2021-03-14] MEDS: methylPREDNISolone SOD SUCC 125 MG/2 ML IVPush SCH (18:01)
[2021-03-14] MEDS ORDERED: MORPHINE SULFATE 4 MG/ML, 1ML ONE (18:09)
[2021-03-14] MEDS ORDERED: VANCOMYCIN 2,000 MG in SODIUM CHLORIDE 0.9% 500 ML IV ONE (18:30)
[2021-03-14] MEDS: MEROPENEM 1 GM in SODIUM CHLORIDE 0.9% 100 ML IV SCH (18:30)
[2021-03-14 18:31] LABS: INTERNATIONAL NORMALIZED RATIO 1.78 (0.93-1.1); PROTHROMBIN TIME 18.8 Seconds (9.6-11.5)
--- NOTE | 2021-03-14 18:33 | NUR ---
PT CURRENTLY RESTING COMFORTABLY ON GURNEY. PT MEDICATED ORDERED FOR PAIN PER DEC. PT AO X 4. SPEECH CONT TO BE THICK D/T SWELLING OF LIPS AND TONGUE WHICH HAS DECREASED SINCE ARRIVAL. PT MAINTAINING OWN AIRWAY AND SECRETIONS ADEQUETLY. RESP EVEN AND UNLABORED. PT ABLE TO SPEAK IN 115-17 WORD SENTENCES W/O DIFFICULTY. PT ON CONT BP, NEUROPSYCHOLOGY DIRECTOR, AND SPO2 MONITORS. CALL LIGHT WITHIN REACH.
--- NOTE | 2021-03-14 19:11 | NUR ---
BEDSIDE REPORT GIVEN TO YUMIKO DAO WHO ASSUMED CARE OF PT. PT CURRENTLY RESTING ON GURNE. PT SLIGHTLY PALE, WARM AND DRY. RESP EVEN AND UNLABORED NO Addendum: 03/14/21 at 1914 by DIONNE BEDSIDE REPORT GIVEN TO YUMIKO DAO WHO ASSUMED CARE OF PT. PT CURRENTLY RESTING ON GURNE. PT SLIGHTLY PALE, WARM AND DRY. RESP EVEN AND UNLABORED. NO CHANGE IN LIP SWELLING OR SPEECH. PT AO X 4. AT BEDSIDE. PT REQUESTING SLEEP MEDICATION AND ORAL FIORICET FOR MIGRAINE. DISCUSSED WITH ADMITTING MD DEFTU - 2MG ATIVAN ORDERED ONE TIME FOR SLEEP AND PT IS STRICT NPO THEREFORE NO PILLS TO BE GIVEN TO PATIENT.
--- NOTE | 2021-03-14 19:20 | NUR ---
RECEIVED REPORT AND PT A&OX4, AND CALM AND COOPERATIVE. PT ON CR MONITOR, AND LEVOPHED GTT INFUSING AT 0.14MCG/KG/MIN TO MAINTAIN BP. PT BECOMING HYPOTENSIVE AT THIS TIME, WITH AN 84/56 BP. MAP 65. ORDERS ARE TO KEEP MAP AT 65 OR GREATER. MEDS ARRIVED FROM PHARMACY.
[2021-03-14] MEDS ORDERED: HYDROmorphone 2 MG/ML, 1ML IVPush PRN (19:30)
[2021-03-14] MEDS ORDERED: LORazepam 2 MG/ML, 1ML IVPush ONE (19:30)
[2021-03-14] MEDS ORDERED: LIDOCAINE 1%, 10ML ONE (19:57)
[2021-03-14] MEDS ORDERED: FENTANYL PF 100 MCG/2ML ONE (20:00)
[2021-03-14] MEDS ORDERED: MIDAZOLAM 1 MG/ML, 5ML ONE (20:00)
--- NOTE | 2021-03-14 20:10 | NUR ---
PT TAKEN TO INTERVENTIONAL RADIOLOGY FOR AN ABCESS DRAIN AND CULTURE OF HER SPLEEN ABCESS. CONSENTS SIGNED AND WITH PT. IR RN TO BEDSIDE WITH TECH, AND TRANSPORTED PT TO CT/IR DEPT. PT A&OX4, CALM AND COOPERATIVE, AND NO CHANGE IN STATUS. LEVOPHED GTT REMAINS INTACT, AND INFUSING WITHOUT ISSUE. RN UPDATED, AND IR RN TOOK PT CARE AT THIS TIME UNTIL RETURN TO T2.
[2021-03-14] MEDS: D5%-0.45NACL+KCL 20MEQ 1,000 ML IV SCH (20:50)
--- NOTE | 2021-03-14 21:39 | NUR ---
DURING CONVERSATION WITH THE PT, AND HER , I BROUGHT UP THE CODE STATUS TO THE PT, AND THAT SHE IS CURRENTLY LISTED A FULL CODE. PT STATES THAT SHE DOES NOT WANT TO BE A FULL CODE, AND THAT SHE REQUESTS AND SHOULD HAVE PAPERWORK ON FILE THAT STATES SHE IS A DNR. PT ASKED IF SHE WOULD WANT AN INTUBATION IF IT CAME TO IT, AND SHE SAID NO. PT WAS ASKED IF SHE WOULD WANT CODE MEDS USED AND GIVEN, AND SHE STATED NO. PT REQUESTS TO BE A "DO NOT RESUSCITATE" STATUS. ATTEMPTED TO CONTACT REHABILITATION PROGRAM COORDINATOR TO UPDATE, BUT THE MD'S PHONE IS NOT ANSWERING AND THEIR MAIL BOX IS FULL. CALLED ICU TO SEE IF THE MD IS AROUND TO UPDATE ON PTS CODE STATUS.
--- NOTE | 2021-03-14 22:08 | NUR ---
SPOKE WITH THE SHAPE BRICK MOLDER COVERING FOR PT, AND SHE ASKED THAT THE HUSBANDS INFORMATION BE TEXTED TO HER, SO SHE CAN VERIFY THE DNR STATUS WISH, AND WRITE THE ORDER. MD WILL ALSO ORDER MEDS CONSISTENT WITH HER HOME MEDS TO HELP HER SLEEP. PTS AT BEDSIDE AT THIS TIME. REQUESTED TO MOVE PT INTO HOSPITAL BED, AND PT STATES SHE IS READY.
--- NOTE | 2021-03-14 22:38 | NUR ---
PT MOVED TO HOSPITAL ICU BED IN TRAUMA 2, PT TOLERATED WELL, AND MULTIPLE STAFF USED FOR MOVEMENT. PT RESTING COMFORTABLY AND SLEEPING ON AND OFF. MEDS GIVEN SEE EMAR.
--- NOTE | 2021-03-14 22:45 | NUR ---
PT RESTING AT THIS TIME. V/S SET UP TO TAKE BP Q15MIN, SINCE PT IS ON A PRESSOR. PT TURNED AT THIS TIME. AND CURRIE EMPTIED, AND IN&OUT CHARTED.
--- NOTE | 2021-03-14 23:32 | NUR ---
CURRIE CATHETER DRAINED AND OUTPUT AMOUNTS INSERTED INTO CHARTING. PT FAST ASLEEP AT THIS TIME ON CR MONITOR. NO DISTRESS AT THIS TIME. WOUND DRAIN TO LUQ ACCORDION DRAIN RESET AND BRIGHT RED BLOOD DRAINAGE NOTED. SMALL AMOUNT.
--- NOTE | 2021-03-15 00:28 | NUR ---
NO CHANGES TO PT. PT REMAINS ASLEEP ON CR MONITOR, NO COMPLAINTS. PT POSITIONED CHANGED IN BED WITH TURN TO THE LEFT. PT TOLERATED WELL. IV SITES INTACT, NO REDNESS OR SWELLING. LEFT EJ PIV INTACT. LEFT AC IV INTACT, AND RIGHT CVL INTACT, DRESSINGS CDI ON ALL THREE IV ACCESS. LEFT UPPER ABDOMEN WOUND DRAIN INTACT, AND DRAINING WELL, ACCORDION RESET.
--- NOTE | 2021-03-15 01:09 | NUR ---
report from sandra stern
--- NOTE | 2021-03-15 01:10 | NUR ---
PT AWAKE AT THIS TIME, NO COMPLAINTS. PTS POSITIONED TURNED SLIGHTLY TO THE LEFT, AND SHE TOLERATED WELL. IV MEDS FLUSHED THRU. PT REMAINS ON IVMF, AND LEVOPHED GTT, AND FINISHING K RIDER. PTS WOUND VAC IS INTACT, AND ACCORDION RESET. IV ACCESES INTACT, NO SWELLING, AND ALL GTTS ON IV PUMPS. CURRIE BAG EMPTIED AND OUTPUT NOTED IN INTERVENTIONS.
[2021-03-15] MEDS ORDERED: HYDROmorphone 1 MG/ML, 1ML INJ ONE (01:41)
[2021-03-15] MEDS: HYDROmorphone 1 MG/ML, 1ML INJ IVPush PRN ×3 (01:43→20:39)
--- NOTE | 2021-03-15 01:49 | NUR ---
Medicated per emar for generalized abd pain at 04/20 Meropenem requested from pharmacy VSS on cardiac catheterization technologist on 0.14 of levo Accordian drain with scant amount of purulent drainage, holding suction
[2021-03-15] MEDS: MEROPENEM 1 GM in SODIUM CHLORIDE 0.9% 100 ML IV SCH ×3 (01:53→19:18)
--- NOTE | 2021-03-15 02:13 | NUR ---
With re-assessment patient fast asleep VSS Meropenem infusing
--- NOTE | 2021-03-15 03:53 | NUR ---
REPORT TO ZELALEM CALDERON
--- NOTE | 2021-03-15 04:23 | NUR ---
LATE ENTRY FOR 0355 - RECEIVED REPORT FROM YUMIKO PEDERSON. ASSUMED CARE OF PT AT THIS TIME. PT ROLLED TO RIGHT SIDE TO FACILITATE COMFORT, PILLOWS TUCKED UNDER BACK. PT TOLERATED WELL, STATED IMPROVED COMFORT. PT REQUESTING PO FLUIDS, INSTRUCTED ON STRICT NPO STATUS. PT VERBALIZED UNDERSTANDING. VSS. PT DENIES FURTHER NEEDS AT THIS TIME.
[2021-03-15] MEDS ORDERED: LORazepam 2 MG/ML, 1ML ONE (04:40)
--- NOTE | 2021-03-15 04:49 | NUR ---
PT REQUESTING MEDICATION TO ASSIST HER WITH SLEEPING. 1 MG ATIVAN GIVEN ORDERED ON EMAR. ATTEMPTS MADE TO TITRATE LEVOPHED DOWN. SEE EMAR. PT'S VSS. PT DENIES FURTHER NEEDS AT THIS TIME.
[2021-03-15] MEDS ORDERED: methylPREDNISolone SOD SUCC 125 MG/2 ML ONE (05:45)
[2021-03-15 05:46] LABS: MEAN CORPUSCULAR HEMOGLOBIN 29.9 pg (27.0-34.8); MEAN CORPUSCULAR HGB CONC 33.6 g/dL (32.4-35.8); MEAN PLATELET VOLUME 6.5 fL (7.4-10.4); PLATELET COUNT 695 x10^3/uL (130-400); RED BLOOD COUNT 3.15 x10^6/uL (3.82-5.3)
[2021-03-15] MEDS: methylPREDNISolone SOD SUCC 125 MG/2 ML IVPush SCH ×5 (05:49→22:55)
[2021-03-15 05:51] LABS: ALBUMIN 1.2 g/dL (3.4-5.0); ANION GAP 7 mmol/L (5-15); CALCIUM 6.6 mg/dL (8.5-10.1); CHLORIDE 115 mmol/L (98-107)
--- NOTE | 2021-03-15 05:52 | NUR ---
PT'S SPOUSE AT BEDSIDE. PT AND SPOUSE CONVERSING. PT DENIES NEEDS AT THIS TIME. RESTING IN HOSPITAL BED, SITTING UP AT A 45 DEGREE ANGLE. FALL PRECAUTIONS IN PLACE.
[2021-03-15 05:55] LABS: ALANINE AMINOTRANSFERASE 30 U/L (12-78); ALKALINE PHOSPHATASE 248 U/L (45-117); BILIRUBIN,TOTAL 0.4 mg/dL (0.2-1.0); CREATININE 0.74 mg/dL (0.55-1.02)
[2021-03-15 06:36] LABS: BAND#(MANUAL) 1.41 x10^3/uL; BANDS%(MANUAL) 11 % (0-7); LYMPH#(MANUAL) 0.77 x10^3/uL (1-3.4); LYMPHS% (MANUAL) 6 % (22-44); MONOS#(MANUAL) 0.38 x10^3/uL (0.3-2.7); MONOS% (MANUAL) 3 % (2-9); SEG#(MANUAL) 10.24 x10^3/uL (1.8-6.8); SEGS% (MANUAL) 80 % (42-75)
[2021-03-15 06:37] LABS: ANISOCYTOSIS 1+; ECHINOCYTES 1+
[2021-03-15 06:39] LABS: <PLATELET ESTIMATE> INCREASED; <PLT MORPHOLOGY> NORMAL PLT MORPH
--- NOTE | 2021-03-15 07:04 | NUR ---
BEDSIDE REPORT TO YUMIKO DODSON. PT REPOSITIONED IN BED TO LEFT LATERAL SIDE. PT TOLERATED WELL. PT TOLERATING DECREASED TITRATION OF LEVOPHED WELL. PT DENIES FURTHER NEEDS AT THIS TIME.
--- NOTE | 2021-03-15 07:10 | NUR ---
ASSUMED CARE. PT A&O, SLURRED SPEECH, SOME CONFUSION. C/O ABDOMINAL PAIN WHEN REPOSITIONED IN BED. NOTED TO HAVE A DRAIN WITH DARK BROWN FLUID IN ACCORDIAN TYPE DRAIN FROM LEFT ABDOMEN. ABDOMEN SOFT. CURRIE CATH IN PLACE WITH CLEAR URINE DRAINING. LEVOPHED NOTED TO BE INFUSING AT .06/MC/KG/MIN. PT NOTED TO HAVE GENERALIZED SWELLING OF FACE.
--- NOTE | 2021-03-15 07:52 | NUR ---
DAUGHTER AT BEDSIDE
--- NOTE | 2021-03-15 08:29 | NUR ---
ATTEMPTED REPORT. RN TO CALL BACK AFTER FIXING ROOM
--- NOTE | 2021-03-15 09:00 | NUR ---
AFTER REPORT CALLED TO AMERICA RN, PT TRANSFERRED TO ICU 6
[2021-03-15] MEDS: D5%-0.45NACL+KCL 20MEQ 1,000 ML IV SCH (09:18)
[2021-03-15] MEDS ORDERED: HYDROmorphone 2 MG/ML, 1ML ONE ×3 (09:40→20:20)
[2021-03-15] MEDS ORDERED: VANCOMYCIN 1,700 MG in SODIUM CHLORIDE 0.9% 250 ML IV SCH (11:00)
[2021-03-15] MEDS ORDERED: PVN PER PHARMACY MC PRN (12:00)
[2021-03-15] MEDS: ACETAMINOPHEN 650 MG SUPP PR PRN ×2 (15:34→23:12)
[2021-03-15] MEDS ORDERED: DEXTROSE 50%, 50ML SYRINGE IVPush PRN (17:00)
[2021-03-15] MEDS ORDERED: AMINO ACID 10% 750 ML, DEXTROSE 70% 350 ML, FAT EMUL/SMOF TPN 200 ML, STERILE WATER 1,0... IV SCH (17:00)
[2021-03-15] MEDS ORDERED: DEXTROSE 10% 500 ML IV PRN (17:00)
[2021-03-15] MEDS: FILTER, DISP 1.2 MICRON FOR TPN/PVN IV PRN (17:47)
[2021-03-15] MEDS: LORazepam 2 MG/ML, 1ML IVPush PRN (20:38)
[2021-03-15] MEDS: INSULIN REGULAR MEDIUM DOSE Q6H X 48HRS SQ-INSULIN SCH (20:40)
[2021-03-15] MEDS: INSULIN REGULAR MEDIUM DOSE QDAY SQ-INSULIN SCH (20:40)
[2021-03-15] MEDS: VANCOMYCIN 1,700 MG in SODIUM CHLORIDE 0.9% 250 ML IV SCH (22:55)
[2021-03-16] MEDS ORDERED: HYDROmorphone 2 MG/ML, 1ML ONE ×2 (02:05→15:39)
[2021-03-16] MEDS: HYDROmorphone 1 MG/ML, 1ML INJ IVPush PRN (02:11)
[2021-03-16] MEDS: MEROPENEM 1 GM in SODIUM CHLORIDE 0.9% 100 ML IV SCH ×3 (02:11→18:47)
[2021-03-16] MEDS: INSULIN REGULAR MEDIUM DOSE Q6H X 48HRS SQ-INSULIN SCH ×4 (02:29→21:15)
[2021-03-16 03:43] LABS: MEAN CORPUSCULAR HEMOGLOBIN 30.2 pg (27.0-34.8); MEAN CORPUSCULAR HGB CONC 33.7 g/dL (32.4-35.8); MEAN PLATELET VOLUME 6.5 fL (7.4-10.4); PLATELET COUNT 550 x10^3/uL (130-400); RED BLOOD COUNT 3.14 x10^6/uL (3.82-5.3); RED CELL DISTRIBUTION WIDTH 14.5 % (9.6-15.2)
[2021-03-16 03:54] LABS: ALANINE AMINOTRANSFERASE 29 U/L (12-78); ALBUMIN 1.2 g/dL (3.4-5.0); ANION GAP 4 mmol/L (5-15); CALCIUM 6.7 mg/dL (8.5-10.1); CHLORIDE 117 mmol/L (98-107); CREATININE 0.61 mg/dL (0.55-1.02)
[2021-03-16 04:00] LABS: ALKALINE PHOSPHATASE 232 U/L (45-117); BILIRUBIN,TOTAL 0.2 mg/dL (0.2-1.0); PREALBUMIN 3.7 mg/dL (20.0-40.0); TOTAL PROTEIN 5.2 g/dL (6.4-8.2); TRIGLYCERIDES 152 mg/dL (50-200)
[2021-03-16 04:18] LABS: BAND#(MANUAL) 0.24 x10^3/uL; BANDS%(MANUAL) 2 % (0-7); LYMPH#(MANUAL) 0.94 x10^3/uL (1-3.4); LYMPHS% (MANUAL) 8 % (22-44); MONOS#(MANUAL) 0.24 x10^3/uL (0.3-2.7); MONOS% (MANUAL) 2 % (2-9); MYELOCYTES# (MANUAL) 0.24 x10^3/uL (0-0); MYELOCYTES% (MANUAL) 2 % (0-0); SEG#(MANUAL) 10.15 x10^3/uL (1.8-6.8); SEGS% (MANUAL) 86 % (42-75)
[2021-03-16 04:22] LABS: ANISOCYTOSIS 1+
[2021-03-16 04:23] LABS: ECHINOCYTES 1+
[2021-03-16 04:24] LABS: <PLATELET ESTIMATE> INCREASED; PMNS WITH VACUOLES 1+; SMALL PLATELETS 1+
[2021-03-16] MEDS: methylPREDNISolone SOD SUCC 125 MG/2 ML IVPush SCH ×3 (05:04→16:44)
[2021-03-16] MEDS: LORazepam 2 MG/ML, 1ML IVPush PRN ×2 (05:04→20:57)
[2021-03-16] MEDS: ACETAMINOPHEN 650 MG SUPP PR PRN (05:04)
[2021-03-16] MEDS: VANCOMYCIN 1,700 MG in SODIUM CHLORIDE 0.9% 250 ML IV SCH (11:06)
[2021-03-16] MEDS ORDERED: hydrALAzine 20 MG/ML, 1ML IV PRN (13:00)
[2021-03-16] MEDS ORDERED: MEPERIDINE/PF 25MG/0.5ML IVPush PRN (13:00)
[2021-03-16] MEDS ORDERED: HALOPERIDOL 5 MG/ML IV PRN (13:00)
[2021-03-16] MEDS ORDERED: DIPHENHYDRAMINE 50 MG/ML, 1ML IVPush PRN (13:00)
[2021-03-16] MEDS ORDERED: LABETALOL 5MG/ML, 20ML IV PRN (13:00)
[2021-03-16] MEDS ORDERED: HYDROmorphone 1 MG/ML, 1ML INJ IVPush PRN (13:00)
[2021-03-16] MEDS ORDERED: PROMETHAZINE 25 MG/ML, 1ML IVPush PRN (13:00)
[2021-03-16] MEDS ORDERED: FENTANYL PF 100 MCG/2ML IV PRN (13:00)
[2021-03-16] MEDS ORDERED: PROPOFOL 10 MG/ML, 20ML ONE (13:12)
[2021-03-16] MEDS ORDERED: ROCURONIUM 10MG/ML,5ML ONE (13:12)
[2021-03-16] MEDS ORDERED: CEFAZOLIN 1,000 MG ONE (13:12)
[2021-03-16] MEDS ORDERED: ONDANSETRON 2MG/ML, 2ML ONE (13:12)
[2021-03-16] MEDS ORDERED: NEOSTIGMINE 1 MG/ML, 10ML ONE (13:12)
[2021-03-16] MEDS ORDERED: GLYCOPYRROLATE 0.2MG/1ML, 5ML ONE (13:12)
[2021-03-16] MEDS ORDERED: PHENYLEPHRINE 10 MG/ML ONE (13:12)
[2021-03-16] MEDS ORDERED: SUCCINYLCHOLINE 20 MG/ML, 10ML ONE (13:12)
[2021-03-16] MEDS ORDERED: FENTANYL PF 100 MCG/2ML ONE (13:14)
[2021-03-16] MEDS: FILTER, DISP 1.2 MICRON FOR TPN/PVN IV PRN (16:45)
[2021-03-16] MEDS ORDERED: AMINO ACID 10% 750 ML, DEXTROSE 70% 350 ML, FAT EMUL/SMOF TPN 200 ML, STERILE WATER 1,0... IV SCH (17:00)
[2021-03-16] MEDS: INSULIN REGULAR MEDIUM DOSE QDAY SQ-INSULIN SCH (21:08)
[2021-03-16] MEDS ORDERED: CATHFLO-ALTEPLASE 2 MG/2 ML CATHFLUSH ONE (22:30)
[2021-03-17] MEDS: methylPREDNISolone SOD SUCC 125 MG/2 ML IVPush SCH ×4 (00:39→22:18)
[2021-03-17 01:35] LABS: FIO2 ROOM AIR %
[2021-03-17] MEDS: MICAFUNGIN 100 MG in SODIUM CHLORIDE 0.9% 100 ML IV SCH (01:45)
[2021-03-17] MEDS: ACETAMINOPHEN 650 MG SUPP PR PRN ×2 (02:34→11:52)
[2021-03-17] MEDS: MEROPENEM 1 GM in SODIUM CHLORIDE 0.9% 100 ML IV SCH ×3 (02:34→18:32)
[2021-03-17] MEDS ORDERED: HYDROmorphone 2 MG/ML, 1ML ONE ×3 (02:47→14:34)
[2021-03-17] MEDS: HYDROmorphone 1 MG/ML, 1ML INJ IVPush PRN ×3 (02:55→14:38)
[2021-03-17] MEDS: INSULIN REGULAR MEDIUM DOSE Q6H X 48HRS SQ-INSULIN SCH ×3 (03:50→14:37)
[2021-03-17 04:32] LABS: MEAN CORPUSCULAR HEMOGLOBIN 30.2 pg (27.0-34.8); MEAN CORPUSCULAR HGB CONC 33.5 g/dL (32.4-35.8); MEAN PLATELET VOLUME 6.5 fL (7.4-10.4); PLATELET COUNT 519 x10^3/uL (130-400); RED BLOOD COUNT 3.15 x10^6/uL (3.82-5.3); RED CELL DISTRIBUTION WIDTH 15.2 % (9.6-15.2)
[2021-03-17 04:41] LABS: ALANINE AMINOTRANSFERASE 35 U/L (12-78); ALBUMIN 1.5 g/dL (3.4-5.0); ANION GAP 6 mmol/L (5-15); CALCIUM 7.2 mg/dL (8.5-10.1); CHLORIDE 111 mmol/L (98-107); CREATININE 0.65 mg/dL (0.55-1.02)
[2021-03-17 04:43] LABS: ALKALINE PHOSPHATASE 213 U/L (45-117); BILIRUBIN,TOTAL 0.2 mg/dL (0.2-1.0); TOTAL PROTEIN 5.7 g/dL (6.4-8.2)
[2021-03-17] MEDS: VANCOMYCIN 1,800 MG in SODIUM CHLORIDE 0.9% 250 ML IV SCH ×2 (04:54→22:49)
[2021-03-17 05:04] LABS: LYMPH#(MANUAL) 1.31 x10^3/uL (1-3.4); LYMPHS% (MANUAL) 9 % (22-44); MONOS#(MANUAL) 0.29 x10^3/uL (0.3-2.7); MONOS% (MANUAL) 2 % (2-9); MYELOCYTES# (MANUAL) 0.29 x10^3/uL (0-0); MYELOCYTES% (MANUAL) 2 % (0-0); SEGS% (MANUAL) 87 % (42-75)
[2021-03-17 05:05] LABS: ANISOCYTOSIS 1+; OVALOCYTES 1+; PMNS WITH VACUOLES 1+
[2021-03-17 05:10] LABS: <PLATELET ESTIMATE> INCREASED; SMALL PLATELETS 1+
[2021-03-17] MEDS ORDERED: FUROSEMIDE 40 MG/4 ML IV ONE (07:30)
[2021-03-17] MEDS ORDERED: TPN PER PHARMACY MC PRN (07:30)
[2021-03-17] MEDS ORDERED: NEOSTIGMINE 1 MG/ML, 10ML ONE (12:55)
[2021-03-17] MEDS ORDERED: ESMOLOL 100 MG/10 ML ONE (12:55)
[2021-03-17] MEDS ORDERED: METOPROLOL 1 MG/ML, 5ML IVPush SCH (13:30)
[2021-03-17] MEDS ORDERED: FENTANYL PF 100 MCG/2ML ONE (15:18)
[2021-03-17] MEDS: PROPOFOL 100 ML IV PRN ×2 (15:30→21:19)
[2021-03-17] MEDS ORDERED: GLUCAGON 1 MG IM PRN (16:00)
[2021-03-17] MEDS ORDERED: LIDOCAINE-MPF 1%, 2ML ENDO PRN (16:00)
[2021-03-17] MEDS ORDERED: NOREPINEPHRINE 8 MG in SODIUM CHLORIDE 0.9% 242 ML IV PRN (16:00)
[2021-03-17] MEDS ORDERED: DEXTROSE 4 GM TAB.CHEW PO PRN (16:00)
[2021-03-17] MEDS ORDERED: DEXTROSE 50%, 50ML SYRINGE IVPush PRN (16:00)
[2021-03-17] MEDS ORDERED: PHARMACY MAY ADJ FOR RENAL FX MC SCH (16:00)
[2021-03-17] MEDS ORDERED: DEXTROSE 70% IV SCH (17:00)
[2021-03-17] MEDS ORDERED: SMOF TPN IV SCH (17:00)
[2021-03-17] MEDS ORDERED: FAT EMUL IV SCH (17:00)
[2021-03-17] MEDS ORDERED: [UNRECOGNIZED DRUG - OTHER] IV SCH (17:00)
[2021-03-17] MEDS ORDERED: AMINO ACID 10% IV SCH (17:00)
[2021-03-17] MEDS ORDERED: ETOMIDATE 20 MG/10 ML ONE (18:40)
[2021-03-17] MEDS ORDERED: MIDAZOLAM 1 MG/ML, 5ML ONE (18:40)
[2021-03-17] MEDS ORDERED: PROPOFOL 10 MG/ML, 100ML IV ONE (18:40)
[2021-03-17] MEDS: ALBUTEROL/IPRATROPIUM 2.5MG/0.5MG, 3 ML INLINE SCH ×2 (19:00→23:00)
[2021-03-17] MEDS: FENTANYL PF 1,000 MCG in SODIUM CHLORIDE 0.9% 80 ML IV PRN (21:18)
[2021-03-17] MEDS: SODIUM CHLORIDE FLUSH 10ML SYR IVF SCH (22:19)
[2021-03-17] MEDS: INSULIN REGULAR MEDIUM DOSE QDAY SQ-INSULIN SCH (22:21)
[2021-03-18] MEDS: MICAFUNGIN 100 MG in SODIUM CHLORIDE 0.9% 100 ML IV SCH (00:30)
[2021-03-18] MEDS: PROPOFOL 100 ML IV PRN ×4 (00:59→19:49)
[2021-03-18] MEDS: MEROPENEM 1 GM in SODIUM CHLORIDE 0.9% 100 ML IV SCH ×3 (02:38→18:32)
[2021-03-18] MEDS: ALBUTEROL/IPRATROPIUM 2.5MG/0.5MG, 3 ML INLINE SCH ×6 (03:00→22:19)
[2021-03-18 04:40] LABS: MEAN CORPUSCULAR HEMOGLOBIN 30.1 pg (27.0-34.8); MEAN CORPUSCULAR HGB CONC 33.4 g/dL (32.4-35.8); MEAN PLATELET VOLUME 6.7 fL (7.4-10.4); PLATELET COUNT 382 x10^3/uL (130-400); RED BLOOD COUNT 2.88 x10^6/uL (3.82-5.3); RED CELL DISTRIBUTION WIDTH 15.1 % (9.6-15.2)
[2021-03-18 04:50] LABS: CALCIUM 6.9 mg/dL (8.5-10.1); CREATININE 0.51 mg/dL (0.55-1.02)
[2021-03-18 04:57] LABS: ANION GAP 5 mmol/L (5-15); CHLORIDE 108 mmol/L (98-107)
[2021-03-18 04:58] LABS: PREALBUMIN 15.7 mg/dL (20.0-40.0)
[2021-03-18 05:42] LABS: ANISOCYTOSIS 1+; EOS#(MANUAL) 0.13 x10^3/uL (0.0-0.4); EOS% (MANUAL) 1 % (1-7); LYMPHS% (MANUAL) 6 % (22-44); METAMYELOCYTES% (MANUAL) 3 % (0-1); MONOS#(MANUAL) 0.13 x10^3/uL (0.3-2.7); MONOS% (MANUAL) 1 % (2-9); MYELOCYTES% (MANUAL) 3 % (0-0); SEG#(MANUAL) 11.52 x10^3/uL (1.8-6.8); SEGS% (MANUAL) 86 % (42-75)
[2021-03-18 05:43] LABS: <PLATELET ESTIMATE> ADEQUATE; OVALOCYTES 1+
[2021-03-18 05:44] LABS: <PLT MORPHOLOGY> NORMAL PLT MORPH; PMNS WITH VACUOLES 1+
[2021-03-18 05:45] LABS: MICROCYTOSIS 1+
[2021-03-18] MEDS: methylPREDNISolone SOD SUCC 125 MG/2 ML IVPush SCH ×3 (06:05→21:27)
[2021-03-18] MEDS: SODIUM CHLORIDE FLUSH 10ML SYR IVF SCH ×2 (09:55→21:27)
[2021-03-18] MEDS: FENTANYL PF 1,000 MCG in SODIUM CHLORIDE 0.9% 80 ML IV PRN (13:27)
[2021-03-18] MEDS: VANCOMYCIN 1,800 MG in SODIUM CHLORIDE 0.9% 250 ML IV SCH (16:58)
[2021-03-18] MEDS: FILTER, DISP 1.2 MICRON FOR TPN/PVN IV PRN (16:59)
[2021-03-18] MEDS ORDERED: DEXTROSE 70% IV SCH (17:00)
[2021-03-18] MEDS ORDERED: STERILE WATER IV SCH (17:00)
[2021-03-18] MEDS ORDERED: AMINO ACID 10% IV SCH (17:00)
[2021-03-18] MEDS ORDERED: [UNRECOGNIZED DRUG - OTHER] IV SCH (17:00)
[2021-03-18] MEDS: INSULIN REGULAR MEDIUM DOSE QDAY SQ-INSULIN SCH (21:00)
[2021-03-19] MEDS: PROPOFOL 100 ML IV PRN ×2 (00:52→03:27)
[2021-03-19] MEDS: MEROPENEM 1 GM in SODIUM CHLORIDE 0.9% 100 ML IV SCH ×3 (01:57→18:09)
[2021-03-19] MEDS: FENTANYL PF 1,000 MCG in SODIUM CHLORIDE 0.9% 80 ML IV PRN (01:58)
[2021-03-19] MEDS: ALBUTEROL/IPRATROPIUM 2.5MG/0.5MG, 3 ML INLINE SCH ×2 (02:16→06:32)
[2021-03-19] MEDS: LORazepam 2 MG/ML, 1ML IVPush PRN ×4 (02:50→21:47)
[2021-03-19 04:21] LABS: MEAN CORPUSCULAR HEMOGLOBIN 29.7 pg (27.0-34.8); MEAN PLATELET VOLUME 6.8 fL (7.4-10.4); PLATELET COUNT 371 x10^3/uL (130-400); RED BLOOD COUNT 2.84 x10^6/uL (3.82-5.3); RED CELL DISTRIBUTION WIDTH 15.1 % (9.6-15.2)
[2021-03-19 04:31] LABS: ANION GAP 4 mmol/L (5-15); CALCIUM 7.1 mg/dL (8.5-10.1); CHLORIDE 106 mmol/L (98-107)
[2021-03-19 04:53] LABS: BAND#(MANUAL) 0.13 x10^3/uL; BANDS%(MANUAL) 1 % (0-7); LYMPHS% (MANUAL) 8 % (22-44); MONOS#(MANUAL) 0.25 x10^3/uL (0.3-2.7); MONOS% (MANUAL) 2 % (2-9); MYELOCYTES# (MANUAL) 0.25 x10^3/uL (0-0); MYELOCYTES% (MANUAL) 2 % (0-0); SEG#(MANUAL) 10.88 x10^3/uL (1.8-6.8); SEGS% (MANUAL) 87 % (42-75)
[2021-03-19 04:54] LABS: ANISOCYTOSIS 1+; MICROCYTOSIS 1+
[2021-03-19 04:55] LABS: <PLATELET ESTIMATE> ADEQUATE; OVALOCYTES 1+; POLYCHROMASIA 1+
[2021-03-19 04:56] LABS: SMALL PLATELETS 1+
[2021-03-19] MEDS: methylPREDNISolone SOD SUCC 125 MG/2 ML IVPush SCH (05:29)
[2021-03-19] MEDS: MICAFUNGIN 100 MG in SODIUM CHLORIDE 0.9% 100 ML IV SCH (08:53)
[2021-03-19] MEDS: SODIUM CHLORIDE FLUSH 10ML SYR IVF SCH ×2 (08:53→21:53)
[2021-03-19] MEDS: HYDROmorphone 1 MG/ML, 1ML INJ IVPush PRN ×3 (08:53→18:32)
[2021-03-19] MEDS ORDERED: FENTANYL 50 MCG PATCH TD SCH (09:00)
[2021-03-19] MEDS: METHYLNALTREXONE 12 MG/0.6 ML SYR SQ SCH (09:08)
[2021-03-19] MEDS ORDERED: PHENOL THROAT SPRAY BOTTLE MM PRN (09:30)
[2021-03-19] MEDS: GABAPENTIN 400 MG CAPSULE PO SCH ×4 (11:55→21:35)
[2021-03-19] MEDS: VANCOMYCIN 1,800 MG in SODIUM CHLORIDE 0.9% 250 ML IV SCH (11:55)
[2021-03-19] MEDS: METOPROLOL TARTRATE 25 MG TAB PO SCH (12:00)
[2021-03-19] MEDS ORDERED: [UNRECOGNIZED DRUG - OTHER] IV SCH (17:00)
[2021-03-19] MEDS ORDERED: AMINO ACID 10% IV SCH (17:00)
[2021-03-19] MEDS ORDERED: STERILE WATER IV SCH (17:00)
[2021-03-19] MEDS ORDERED: DEXTROSE 70% IV SCH (17:00)
[2021-03-19] MEDS: FILTER, DISP 1.2 MICRON FOR TPN/PVN IV PRN (17:20)
[2021-03-19] MEDS: ACETAMINOPHEN 650 MG SUPP PR PRN (18:09)
[2021-03-19 19:54] VITALS: BP 171/81
[2021-03-19] MEDS: INSULIN REGULAR MEDIUM DOSE QDAY SQ-INSULIN SCH (21:00)
[2021-03-19] MEDS: TIZANIDINE 4MG TABLET PO SCH (21:36)
[2021-03-20 00:54] VITALS: BP 93/67
[2021-03-20] MEDS: MEROPENEM 1 GM in SODIUM CHLORIDE 0.9% 100 ML IV SCH ×3 (02:34→18:32)
[2021-03-20] MEDS: VANCOMYCIN 1,900 MG in SODIUM CHLORIDE 0.9% 250 ML IV SCH ×2 (04:04→23:57)
[2021-03-20] MEDS: LORazepam 2 MG/ML, 1ML IVPush PRN ×3 (04:07→14:26)
[2021-03-20] MEDS: HYDROmorphone 1 MG/ML, 1ML INJ IVPush PRN ×4 (04:08→18:33)
[2021-03-20 05:20] LABS: ANION GAP 5 mmol/L (5-15); CALCIUM 7.1 mg/dL (8.5-10.1); CHLORIDE 106 mmol/L (98-107); CREATININE 0.31 mg/dL (0.55-1.02); TRIGLYCERIDES 396 mg/dL (50-200)
[2021-03-20 07:00] VITALS: BP 106/75
[2021-03-20 07:44] LABS: MEAN CORPUSCULAR HGB CONC 33.1 g/dL (32.4-35.8); MEAN PLATELET VOLUME 7.5 fL (7.4-10.4); PLATELET COUNT 333 x10^3/uL (130-400); RED BLOOD COUNT 2.89 x10^6/uL (3.82-5.3); RED CELL DISTRIBUTION WIDTH 14.4 % (9.6-15.2)
[2021-03-20 07:53] LABS: ALANINE AMINOTRANSFERASE 69 U/L (12-78); ALBUMIN 1.5 g/dL (3.4-5.0); ANION GAP 7 mmol/L (5-15); CALCIUM 7.3 mg/dL (8.5-10.1); CHLORIDE 106 mmol/L (98-107); CREATININE 0.34 mg/dL (0.55-1.02)
[2021-03-20 07:55] LABS: ALKALINE PHOSPHATASE 160 U/L (45-117); BILIRUBIN,TOTAL 0.3 mg/dL (0.2-1.0)
[2021-03-20 08:37] LABS: BANDS%(MANUAL) 5 % (0-7); EOS#(MANUAL) 0.14 x10^3/uL (0.0-0.4); EOS% (MANUAL) 1 % (1-7); LYMPHS% (MANUAL) 15 % (22-44); METAMYELOCYTES# (MANUAL) 0.14 x10^3/uL (0-0); METAMYELOCYTES% (MANUAL) 1 % (0-1)
[2021-03-20 08:38] LABS: MONOS#(MANUAL) 0.28 x10^3/uL (0.3-2.7); MONOS% (MANUAL) 2 % (2-9); SEG#(MANUAL) 10.64 x10^3/uL (1.8-6.8); SEGS% (MANUAL) 76 % (42-75)
[2021-03-20 08:39] LABS: ANISOCYTOSIS 1+; OVALOCYTES 1+; POLYCHROMASIA 1+
[2021-03-20 08:40] LABS: <PLATELET ESTIMATE> ADEQUATE; PMNS WITH VACUOLES 1+
[2021-03-20 08:43] LABS: SMALL PLATELETS 1+
[2021-03-20] MEDS: SODIUM CHLORIDE FLUSH 10ML SYR IVF SCH ×2 (08:54→21:14)
[2021-03-20] MEDS: MICAFUNGIN 100 MG in SODIUM CHLORIDE 0.9% 100 ML IV SCH (08:54)
[2021-03-20] MEDS: GABAPENTIN 400 MG CAPSULE PO SCH ×4 (08:54→21:14)
[2021-03-20] MEDS: METOPROLOL TARTRATE 25 MG TAB PO SCH (08:54)
[2021-03-20] MEDS ORDERED: PHARMACOKINETIC MONITORING MC PRN (11:30)
[2021-03-20 13:49] VITALS: BP 124/87
[2021-03-20] MEDS ORDERED: ZIPRASIDONE 20 MG INJ IM PRN (14:30)
[2021-03-20] MEDS: ACETAMINOPHEN 650 MG SUPP PR PRN (16:27)
[2021-03-20] MEDS ORDERED: SMOF TPN IV SCH (17:00)
[2021-03-20] MEDS ORDERED: [UNRECOGNIZED DRUG - OTHER] IV SCH (17:00)
[2021-03-20] MEDS ORDERED: DEXTROSE 70% IV SCH (17:00)
[2021-03-20] MEDS ORDERED: AMINO ACID 10% IV SCH (17:00)
[2021-03-20] MEDS ORDERED: FAT EMUL IV SCH (17:00)
[2021-03-20] MEDS: FILTER, DISP 1.2 MICRON FOR TPN/PVN IV PRN (17:23)
[2021-03-20 18:56] VITALS: BP 137/94
[2021-03-20] MEDS ORDERED: QUETIAPINE 100MG TABLET PO SCH (19:41)
[2021-03-20] MEDS: INSULIN REGULAR MEDIUM DOSE QDAY SQ-INSULIN SCH (21:00)
[2021-03-20] MEDS: MIRTAZAPINE 15 MG TABLET PO SCH (21:14)
[2021-03-20] MEDS: TIZANIDINE 4MG TABLET PO SCH (21:14)
[2021-03-20] MEDS ORDERED: CATHFLO-ALTEPLASE 2 MG/2 ML CATHFLUSH ONE (22:00)
[2021-03-21] VITALS (8 sets, daily range): BP systolic 79–112; BP diastolic 54–75
[2021-03-21] MEDS ORDERED: CATHFLO-ALTEPLASE 2 MG/2 ML CATHFLUSH ONE (00:30)
[2021-03-21 00:59] LABS: BASOPHILS % (AUTO) 1 % (0-1); EOSINOPHILS % (AUTO) 1 % (1-7); LYMPHOCYTES % (AUTO) 13 % (22-44); MEAN CORPUSCULAR HEMOGLOBIN 30.3 pg (27.0-34.8); MEAN CORPUSCULAR HGB CONC 33.7 g/dL (32.4-35.8); MEAN PLATELET VOLUME 7.1 fL (7.4-10.4); MONOCYTES % (AUTO) 5 % (2-9); NEUTROPHILS % (AUTO) 81 % (42-75); PLATELET COUNT 300 x10^3/uL (130-400); RED BLOOD COUNT 2.81 x10^6/uL (3.82-5.3); RED CELL DISTRIBUTION WIDTH 14.9 % (9.6-15.2)
[2021-03-21 01:15] LABS: ANION GAP 3 mmol/L (5-15); CHLORIDE 107 mmol/L (98-107); CREATININE 0.23 mg/dL (0.55-1.02)
[2021-03-21] MEDS ORDERED: LACTATED RINGERS 1,000 ML IV SCH (01:30)
[2021-03-21] MEDS ORDERED: POTASSIUM CHLORIDE 20 MEQ TAB.ER.PRT PO ONE (02:30)
[2021-03-21] MEDS: MEROPENEM 1 GM in SODIUM CHLORIDE 0.9% 100 ML IV SCH ×3 (02:50→20:18)
[2021-03-21 05:26] LABS: ANION GAP 6 mmol/L (5-15); CALCIUM 7.4 mg/dL (8.5-10.1); CHLORIDE 108 mmol/L (98-107); CREATININE 0.24 mg/dL (0.55-1.02); TRIGLYCERIDES 282 mg/dL (50-200)
[2021-03-21] MEDS ORDERED: ALBUMIN HUMAN 25% 200 ML ONE (06:19)
[2021-03-21] MEDS ORDERED: ALBUMIN HUMAN 25% 200 ML IV ONE (06:30)
[2021-03-21] MEDS ORDERED: ALBUMIN HUMAN 25% 100 ML IV ONE (06:30)
[2021-03-21] MEDS ORDERED: HEPARIN 5,000 UNITS/ML, 1ML IV PRN (07:00)
[2021-03-21] MEDS ORDERED: HEPARIN 25,000 UNITS/250ML PMX 250 ML IV PRN (07:00)
[2021-03-21] MEDS ORDERED: HEPARIN 5,000 UNITS/ML, 1ML IV ONE ×2 (07:00)
[2021-03-21] MEDS: HYDROmorphone 1 MG/ML, 1ML INJ IVPush PRN ×2 (07:39→12:33)
[2021-03-21 07:42] LABS: ALANINE AMINOTRANSFERASE 46 U/L (12-78); ALBUMIN 1.3 g/dL (3.4-5.0); ANION GAP 7 mmol/L (5-15); CHLORIDE 107 mmol/L (98-107)
[2021-03-21 07:45] LABS: ALKALINE PHOSPHATASE 133 U/L (45-117); BILIRUBIN,TOTAL 0.5 mg/dL (0.2-1.0); CREATININE 0.26 mg/dL (0.55-1.02); TOTAL PROTEIN 4.3 g/dL (6.4-8.2); TROPONIN I 0.102 ng/mL (0.000-0.045)
[2021-03-21 08:21] LABS: D-DIMER 9.09 ug/mlFEU (0.00-0.52)
[2021-03-21 08:35] LABS: MEAN CORPUSCULAR HEMOGLOBIN 29.7 pg (27.0-34.8); MEAN CORPUSCULAR HGB CONC 33.3 g/dL (32.4-35.8); MEAN PLATELET VOLUME 7.5 fL (7.4-10.4); PLATELET COUNT 301 x10^3/uL (130-400); RED BLOOD COUNT 2.71 x10^6/uL (3.82-5.3); RED CELL DISTRIBUTION WIDTH 15.2 % (9.6-15.2)
[2021-03-21] MEDS: METOPROLOL TARTRATE 25 MG TAB PO SCH (09:00)
[2021-03-21 09:15] LABS: ANISOCYTOSIS 1+; BAND#(MANUAL) 0.21 x10^3/uL; BANDS%(MANUAL) 2 % (0-7); LYMPH#(MANUAL) 0.93 x10^3/uL (1-3.4); LYMPHS% (MANUAL) 9 % (22-44); METAMYELOCYTES% (MANUAL) 1 % (0-1); MONOS#(MANUAL) 0.52 x10^3/uL (0.3-2.7); MONOS% (MANUAL) 5 % (2-9); OVALOCYTES 1+; POLYCHROMASIA 1+; REACTIVE LYMPHS % (MANUAL) 1 % (0-0); SEG#(MANUAL) 8.45 x10^3/uL (1.8-6.8); SEGS% (MANUAL) 82 % (42-75); TEAR DROPS 1+
[2021-03-21 09:16] LABS: <PLATELET ESTIMATE> ADEQUATE; SMALL PLATELETS 1+
[2021-03-21] MEDS: SODIUM CHLORIDE FLUSH 10ML SYR IVF SCH ×2 (09:51→20:33)
[2021-03-21] MEDS: MICAFUNGIN 100 MG in SODIUM CHLORIDE 0.9% 100 ML IV SCH (09:51)
[2021-03-21] MEDS ORDERED: OMNIPAQUE 350 MG/ML, 100ML BOTTLE ONE (10:58)
[2021-03-21] MEDS: METHYLNALTREXONE 12 MG/0.6 ML SYR SQ SCH (11:40)
[2021-03-21] MEDS: ERGOCALCIFEROL 50,000 UNIT CAPSULE PO SCH ×2 (11:40→11:49)
[2021-03-21] MEDS: GABAPENTIN 400 MG CAPSULE PO SCH ×4 (11:40→20:27)
[2021-03-21] MEDS: LORazepam 2 MG/ML, 1ML IVPush PRN (13:06)
[2021-03-21] MEDS ORDERED: OLANZAPINE ODT 10MG PO ONE (13:30)
[2021-03-21] MEDS ORDERED: OLANZAPINE 10 MG INJ IM PRN (13:30)
[2021-03-21] MEDS: VANCOMYCIN 1,900 MG in SODIUM CHLORIDE 0.9% 250 ML IV SCH (15:16)
[2021-03-21] MEDS: HEPARIN 5,000 UNITS/ML, 1ML IV PRN (15:52)
[2021-03-21] MEDS ORDERED: DEXTROSE 70% IV SCH (17:00)
[2021-03-21] MEDS ORDERED: SMOF TPN IV SCH (17:00)
[2021-03-21] MEDS ORDERED: [UNRECOGNIZED DRUG - OTHER] IV SCH (17:00)
[2021-03-21] MEDS ORDERED: AMINO ACID 10% IV SCH (17:00)
[2021-03-21] MEDS ORDERED: FAT EMUL IV SCH (17:00)
[2021-03-21] MEDS: FILTER, DISP 1.2 MICRON FOR TPN/PVN IV PRN (18:08)
[2021-03-21] MEDS: MIRTAZAPINE 15 MG TABLET PO SCH (20:20)
[2021-03-21] MEDS: TIZANIDINE 4MG TABLET PO SCH (20:20)
[2021-03-21] MEDS: OLANZAPINE ODT 10MG PO SCH (20:28)
[2021-03-21] MEDS: INSULIN REGULAR MEDIUM DOSE QDAY SQ-INSULIN SCH (21:00)
[2021-03-21] MEDS: MIDODRINE 5 MG TABLET PO ONE ×2 (22:00→22:04)
[2021-03-21] MEDS ORDERED: HYDROCORTISONE 100 MG INJ. IVPush ONE (22:30)
[2021-03-22] MEDS: HEPARIN 5,000 UNITS/ML, 1ML IV PRN ×2 (00:19→06:42)
[2021-03-22] MEDS ORDERED: SODIUM CHLORIDE 0.9%, 500ML IVBOLUS ONE (01:00)
[2021-03-22] MEDS: MEROPENEM 1 GM in SODIUM CHLORIDE 0.9% 100 ML IV SCH (03:46)
[2021-03-22] MEDS: HEPARIN 25,000 UNITS/250ML PMX 250 ML IV PRN (06:26)
[2021-03-22] MEDS: SODIUM CHLORIDE FLUSH 10ML SYR IVF SCH ×2 (09:00→20:19)
[2021-03-22 09:12] LABS: ANION GAP 7 mmol/L (5-15); CALCIUM 7.7 mg/dL (8.5-10.1); CHLORIDE 108 mmol/L (98-107); CREATININE 0.22 mg/dL (0.55-1.02)
[2021-03-22] MEDS: metroNIDAZOLE 500 MG TABLET PO SCH ×2 (09:12→15:25)
[2021-03-22] MEDS: OLANZAPINE ODT 10MG PO SCH ×2 (09:12→20:16)
[2021-03-22] MEDS: MICAFUNGIN 100 MG in SODIUM CHLORIDE 0.9% 100 ML IV SCH (09:12)
[2021-03-22] MEDS: GABAPENTIN 400 MG CAPSULE PO SCH (09:12)
[2021-03-22] MEDS: LINEZOLID 600 MG TABLET PO SCH ×2 (09:12→20:15)
[2021-03-22] MEDS ORDERED: POTASSIUM CHLORIDE 20 MEQ PACKET PO ONE (12:00)
[2021-03-22] MEDS: OXYcodone 5 MG/5 ML ORAL.SOL UDC PO PRN ×2 (12:54→20:17)
[2021-03-22] MEDS: BUTALB/APAP/CAFFEINE 50MG/325MG/40MG PO PRN (15:25)
[2021-03-22] MEDS ORDERED: [UNRECOGNIZED DRUG - OTHER] IV SCH (17:00)
[2021-03-22] MEDS ORDERED: DEXTROSE 70% IV SCH (17:00)
[2021-03-22] MEDS ORDERED: AMINO ACID 10% IV SCH (17:00)
[2021-03-22] MEDS ORDERED: SMOF TPN IV SCH (17:00)
[2021-03-22] MEDS ORDERED: FAT EMUL IV SCH (17:00)
[2021-03-22] MEDS: FILTER, DISP 1.2 MICRON FOR TPN/PVN IV PRN (17:12)
[2021-03-22] MEDS: TIZANIDINE 4MG TABLET PO SCH (20:16)
[2021-03-22] MEDS: MIRTAZAPINE 15 MG TABLET PO SCH (20:16)
[2021-03-22] MEDS: INSULIN REGULAR MEDIUM DOSE QDAY SQ-INSULIN SCH (20:22)
[2021-03-23] MEDS: metroNIDAZOLE 500 MG TABLET PO SCH ×3 (00:30→16:15)
[2021-03-23] MEDS: HEPARIN 25,000 UNITS/250ML PMX 250 ML IV PRN (01:29)
[2021-03-23] MEDS: BUTALB/APAP/CAFFEINE 50MG/325MG/40MG PO PRN ×3 (04:55→16:50)
[2021-03-23 05:23] LABS: BASOPHILS % (AUTO) 1 % (0-1); EOSINOPHILS % (AUTO) 4 % (1-7); LYMPHOCYTES % (AUTO) 21 % (22-44); MEAN CORPUSCULAR HEMOGLOBIN 29.9 pg (27.0-34.8); MEAN CORPUSCULAR HGB CONC 32.9 g/dL (32.4-35.8); MEAN PLATELET VOLUME 7.5 fL (7.4-10.4); MONOCYTES % (AUTO) 10 % (2-9); NEUTROPHILS % (AUTO) 64 % (42-75); PLATELET COUNT 387 x10^3/uL (130-400); RED BLOOD COUNT 2.79 x10^6/uL (3.82-5.3); RED CELL DISTRIBUTION WIDTH 15.5 % (9.6-15.2)
[2021-03-23 05:36] LABS: ANION GAP 4 mmol/L (5-15); CALCIUM 7.5 mg/dL (8.5-10.1); CHLORIDE 108 mmol/L (98-107); CREATININE 0.25 mg/dL (0.55-1.02)
[2021-03-23] MEDS: OXYcodone 5 MG/5 ML ORAL.SOL UDC PO PRN (06:21)
[2021-03-23] MEDS: SODIUM CHLORIDE FLUSH 10ML SYR IVF SCH (09:00)
[2021-03-23] MEDS: LINEZOLID 600 MG TABLET PO SCH (09:37)
[2021-03-23] MEDS: OLANZAPINE ODT 10MG PO SCH (09:38)
[2021-03-23] MEDS: MICAFUNGIN 100 MG in SODIUM CHLORIDE 0.9% 100 ML IV SCH (09:38)
[2021-03-23] MEDS: POTASSIUM CHLORIDE 20 MEQ TAB.ER.PRT PO SCH ×2 (09:38→16:15)
[2021-03-23] MEDS ORDERED: Tpn Per Pharmacy MC (12:15)
[2021-03-23] MEDS ORDERED: CLON1TAB11 PO (12:15)
[2021-03-23] MEDS ORDERED: METR500T PO (12:15)
[2021-03-23] MEDS ORDERED: ERGO500017 PO (12:15)
[2021-03-23] MEDS ORDERED: OLAN10TA7 PO (12:15)
[2021-03-23] MEDS ORDERED: MIRT-14 PO (12:15)
[2021-03-23] MEDS ORDERED: INSU100V5 SQ-INSULIN (12:15)
[2021-03-23] MEDS ORDERED: LINE600T15 PO (12:15)
[2021-03-23] MEDS ORDERED: OXYC5SOL8 PO (12:15)
[2021-03-23] MEDS ORDERED: TIZA4TAB2 PO (12:15)
[2021-03-23] MEDS ORDERED: [UNRECOGNIZED DRUG - REMARK] MC (12:15)
[2021-03-23] MEDS ORDERED: FAT EMUL IV SCH (17:00)
[2021-03-23] MEDS ORDERED: SMOF TPN IV SCH (17:00)
[2021-03-23] MEDS ORDERED: DEXTROSE 70% IV SCH (17:00)
[2021-03-23] MEDS ORDERED: [UNRECOGNIZED DRUG - OTHER] IV SCH (17:00)
[2021-03-23] MEDS ORDERED: AMINO ACID 10% IV SCH (17:00)
== END 2021-03-23 17:56 | DRG 871 ==
LOC: ED 12:17 → EDIP 15:00 → SUATTDRO 15:13 → ICU 03-15 08:54 → CCU 03-18 10:57 → 5SO 03-19 13:02 → CCU 03-21 06:31
PROVIDERS: ADMIT Internal Medicine; ATTEND Internal Medicine
PROC: 0T9B70Z Drainage of Bladder with Drainage Device, Via Natural or Artificial Opening (ICD-10-PCS; 2021-03-14)
PROC: 0W9H30Z Drainage of Retroperitoneum with Drainage Device, Percutaneous Approach (ICD-10-PCS; 2021-03-14)
PROC: 0D738DZ Dilation of Lower Esophagus with Intraluminal Device, Via Natural or Artificial Opening Endoscopic (ICD-10-PCS; 2021-03-16)
PROC: 0BH17EZ Insertion of Endotracheal Airway into Trachea, Via Natural or Artificial Opening (ICD-10-PCS; 2021-03-16)
PROC: 5A1935Z Respiratory Ventilation, Less than 24 Consecutive Hours (ICD-10-PCS; 2021-03-16)
PROC: 02HV33Z Insertion of Infusion Device into Superior Vena Cava, Percutaneous Approach (ICD-10-PCS; principal; 2021-03-17)
PROC: 02HV33Z Insertion of Infusion Device into Superior Vena Cava, Percutaneous Approach (ICD-10-PCS; 2021-03-20)
PROC: B548ZZA Ultrasonography of Superior Vena Cava, Guidance (ICD-10-PCS; 2021-03-20)
PROC: 3E0436Z Introduction of Nutritional Substance into Central Vein, Percutaneous Approach (ICD-10-PCS; 2021-03-20)
PROC: 02HV33Z Insertion of Infusion Device into Superior Vena Cava, Percutaneous Approach (ICD-10-PCS; 2021-03-21)
PROC: B5181ZA Fluoroscopy of Superior Vena Cava using Low Osmolar Contrast, Guidance (ICD-10-PCS; 2021-03-21)
PROC: B548ZZA Ultrasonography of Superior Vena Cava, Guidance (ICD-10-PCS; 2021-03-21)
DX: A41.9 Sepsis, unspecified organism (principal); J18.9 Pneumonia, unspecified organism; R65.21 Severe sepsis with septic shock; G93.41 Metabolic encephalopathy; I50.33 Acute on chronic diastolic (congestive) heart failure; J96.01 Acute respiratory failure with hypoxia; K65.1 Peritoneal abscess; E46 Unspecified protein-calorie malnutrition; K50.90 Crohn's disease, unspecified, without complications; I47.2 Ventricular tachycardia; I82.C11 Acute embolism and thrombosis of right internal jugular vein; I82.621 Acute embolism and thrombosis of deep veins of right upper extremity; J44.0 Chronic obstructive pulmonary disease with (acute) lower respiratory infection; J98.11 Atelectasis; K56.7 Ileus, unspecified; N25.81 Secondary hyperparathyroidism of renal origin; Z99.11 Dependence on respirator [ventilator] status; J91.8 Pleural effusion in other conditions classified elsewhere; D63.8 Anemia in other chronic diseases classified elsewhere; D73.3 Abscess of spleen; E11.43 Type 2 diabetes mellitus with diabetic autonomic (poly)neuropathy; E66.9 Obesity, unspecified; Z68.39 Body mass index [BMI] 39.0-39.9, adult; Z88.5 Allergy status to narcotic agent; Z88.0 Allergy status to penicillin; Z88.8 Allergy status to other drugs, medicaments and biological substances; Z20.822 Contact with and (suspected) exposure to COVID-19; E55.9 Vitamin D deficiency, unspecified; E87.6 Hypokalemia; F41.9 Anxiety disorder, unspecified; G89.29 Other chronic pain; I11.0 Hypertensive heart disease with heart failure; I35.8 Other nonrheumatic aortic valve disorders; I49.3 Ventricular premature depolarization; I95.89 Other hypotension; K31.84 Gastroparesis; T78.3XXA Angioneurotic edema, initial encounter; Z87.891 Personal history of nicotine dependence; Z90.3 Acquired absence of stomach [part of]; Z90.49 Acquired absence of other specified parts of digestive tract; Z98.84 Bariatric surgery status; F32.9 Major depressive disorder, single episode, unspecified; Z79.899 Other long term (current) drug therapy; R47.81 Slurred speech; B95.2 Enterococcus as the cause of diseases classified elsewhere; B96.89 Other specified bacterial agents as the cause of diseases classified elsewhere; F91.9 Conduct disorder, unspecified
CPT/HCPCS: 36415; 36573; 36600; 49405; 70450; 71045; 71275; 74018; 74177; 74240; 76000; 77001; 77012; 80048; 80053; 80202; 81001; 82306; 82330; 82607; 82803; 82962; 83605; 83690; 83735; 83970; 84100; 84134; 84478; 84484; 85025; 85379; 85520; 85610; 85730; 87040; 87070; 87075; 87076; 87077; 87081; 87106; 87186; 87205; 87635; 93005; 93306; 94002; 94003; 94640; 96365; 99156; 99157; 99285; G0378; J0610; J0690; J1170; J1644; J1815; J1940; J2185; J2248; J2250; J2405; J2704; J2710; J2997; J3010; J3370; J3475; J3480; P9047; Q9967; C1729; C1751; C1769; C1874; J0330; J1720; J2060; J2270; J2370; J2930; J3420; J7030; J7040; J7050; J7120

== ENCOUNTER 2021-06-11 07:48 | Outpatient (CLI) | payer MEDICAID, MEDICARE ==
[~2021-06-11 07:48] MED LIST changes: +ERGO500017 PO; +INSU100V5 SQ-INSULIN; +LINE600T15 PO; +METR500T PO; +MIRT-14 PO; +OLAN10TA7 PO; +OXYC5SOL8 PO; -QUET300T PO; +QUET300T2 PO; +Tpn Per Pharmacy MC; +[UNRECOGNIZED DRUG - REMARK] MC
== END 2021-06-11 23:59 | disposition home or self-care (01) ==
LOC: RAD 07:48
PROVIDERS: ATTEND Physician Assistant
DX: K80.20 Calculus of gallbladder without cholecystitis without obstruction (principal); K22.2 Esophageal obstruction; R11.2 Nausea with vomiting, unspecified
CPT/HCPCS: 74240; 76700

== ENCOUNTER 2021-06-14 17:29 | Emergency (ER) | payer MEDICARE ==
[~2021-06-14] VITALS: Ht 157.5 cm; Wt 63.0 kg
[2021-06-14 18:15] LABS: BASOPHILS % (AUTO) 1 % (0-1); EOSINOPHILS % (AUTO) 0 % (1-7); LYMPHOCYTES % (AUTO) 43 % (22-44); MEAN CORPUSCULAR HEMOGLOBIN 23.9 pg (27.0-34.8); MEAN CORPUSCULAR HGB CONC 31.2 g/dL (32.4-35.8); MEAN PLATELET VOLUME 8.1 fL (7.4-10.4); MONOCYTES % (AUTO) 7 % (2-9); NEUTROPHILS % (AUTO) 49 % (42-75); PLATELET COUNT 535 x10^3/uL (130-400); RED BLOOD COUNT 5.02 x10^6/uL (3.82-5.3); RED CELL DISTRIBUTION WIDTH 19.4 % (9.6-15.2)
[2021-06-14 18:35] LABS: CHLORIDE 108 mmol/L (98-107)
[2021-06-14 18:42] LABS: ALANINE AMINOTRANSFERASE 25 U/L (12-78); ALBUMIN 3.4 g/dL (3.4-5.0); ALKALINE PHOSPHATASE 125 U/L (45-117); ANION GAP 9 mmol/L (5-15); BILIRUBIN,TOTAL 0.3 mg/dL (0.2-1.0); CREATININE 0.51 mg/dL (0.55-1.02); TOTAL PROTEIN 7.6 g/dL (6.4-8.2)
[2021-06-14 19:17] LABS: <PLATELET ESTIMATE> INCREASED
[2021-06-14 19:18] LABS: SMALL PLATELETS 1+; STOMATOCYTES 1+
[2021-06-14 19:20] LABS: ANISOCYTOSIS 1+
[2021-06-14 19:21] LABS: MICROCYTOSIS 1+
[2021-06-14 22:08] VITALS: BP 158/102
--- NOTE | 2021-06-14 23:12 | NUR ---
NIL for room
--- NOTE | 2021-06-15 00:22 | NUR ---
TASK RN: NOT IN LOBBY WHEN CALLED FOR ROOM
--- NOTE | 2021-06-15 00:36 | NUR ---
TASK RN: NOT IN LOBBY WHEN CALLED FOR ROOM
== END 2021-06-15 00:38 | disposition left against medical advice (07) ==
LOC: ED 17:34
DX: R10.11 Right upper quadrant pain (principal); R53.1 Weakness
CPT/HCPCS: 36415; 80053; 83690; 85025; 99283

== ENCOUNTER 2021-06-27 14:12 | Emergency (ER) | payer MEDICARE ==
[~2021-06-27] VITALS: Ht 157.5 cm; Wt 65.5 kg
[2021-06-27 15:11] LABS: BASOPHILS % (AUTO) 1 % (0-1); EOSINOPHILS % (AUTO) 3 % (1-7); LYMPHOCYTES % (AUTO) 26 % (22-44); MEAN CORPUSCULAR HEMOGLOBIN 24.4 pg (27.0-34.8); MEAN CORPUSCULAR HGB CONC 31.7 g/dL (32.4-35.8); MEAN PLATELET VOLUME 8.2 fL (7.4-10.4); MONOCYTES % (AUTO) 6 % (2-9); NEUTROPHILS % (AUTO) 64 % (42-75); PLATELET COUNT 346 x10^3/uL (130-400); RED BLOOD COUNT 4.77 x10^6/uL (3.82-5.3); RED CELL DISTRIBUTION WIDTH 19.9 % (9.6-15.2)
[2021-06-27 15:23] LABS: ALANINE AMINOTRANSFERASE 27 U/L (12-78); ALBUMIN 3.1 g/dL (3.4-5.0); ANION GAP 9 mmol/L (5-15); CALCIUM 8.5 mg/dL (8.5-10.1); CHLORIDE 105 mmol/L (98-107); CREATININE 0.66 mg/dL (0.55-1.02)
[2021-06-27 15:25] LABS: ALKALINE PHOSPHATASE 179 U/L (45-117); BILIRUBIN,TOTAL 0.2 mg/dL (0.2-1.0); TOTAL PROTEIN 7.3 g/dL (6.4-8.2)
[2021-06-27 17:38] LABS: HCG UR SG 1.009 (1.003-1.030); MICROSCOPIC AUTO
--- NOTE | 2021-06-27 18:48 | NUR ---
PT TO ROOM FROM LOBBY. NAD.
[2021-06-27 18:52] VITALS: BP 132/92
--- NOTE | 2021-06-27 18:55 | NUR ---
POST OP X 1 WEEK FOR GALLBLADDER SURGEY, C/O "BALL LIKE SUBSTANCE IN MY UPPER RIGHT ABD", TEMPS AT HOME, PAIN. AT BEDSIDE. +DIARRHEA. DENIES URINARY SYMPTOMS. WHEN LYING DOWN ABD IS FLAT, NO "BALL" LIKE SENSATION FELT.
[2021-06-27] MEDS ORDERED: NITROFURANTOIN (MACROBID) 100 MG CAPSULE PO ONE (19:30)
== END 2021-06-27 20:39 | disposition home or self-care (01) ==
LOC: ED 20:00
DX: N30.00 Acute cystitis without hematuria (principal); E11.9 Type 2 diabetes mellitus without complications; Z90.49 Acquired absence of other specified parts of digestive tract; Z88.5 Allergy status to narcotic agent; Z88.6 Allergy status to analgesic agent; Z88.0 Allergy status to penicillin; Z88.8 Allergy status to other drugs, medicaments and biological substances; Z91.040 Latex allergy status
CPT/HCPCS: 36415; 74022; 80053; 81001; 81025; 83690; 85025; 87077; 87086; 87186; 99284